=== PATIENT | female | born 1975 | race Caucasian/White ===

== ENCOUNTER 2016-09-30 19:26 | Inpatient (IN) | payer MEDICARE, BC ==
[2016-09-30] MEDS ORDERED: NITROGLYCERIN OINT 1 INCH/GM PACKET TOPICAL STA (19:54)
[2016-09-30] MEDS ORDERED: ASPIRIN 81 MG CHEW PO STA (19:54)
--- NOTE | 2016-09-30 20:00 | ED ---
General Adult HPI - General Source: patient, RN notes reviewed Mode of arrival: wheelchair Limitations: no limitations <Derrek Redd - Last Filed: 09/30/16 21:04> <Syed Wade - Last Filed: 09/30/16 22:43> - General Chief complaint: Chest Pain Stated complaint: Chest Pain Time Seen by Provider: 09/30/16 19:30 - History of Present Illness Initial comments: This is a 41-year-old female who presents to the emergency department with a past medical history significant for double lung transplant since March. Patient states she also had a blood clot somewhere in her neck she states it was on blood thinners for 2 months.. Patient had a bronchoscopy today and states about an hour after started having chest pain which was a pressure sensation in the left side of her chest and radiated down her left arm and it went up into her neck. Patient denies any fever or cough. Patient denies any chills. Patient states she is more fatigued than normal. Patient denies abdominal pain patient denies nausea vomiting diarrhea. Patient denies being lightheaded dizzy or having any near syncopal episode. (Derrek Redd) - Related Data Home Medications Medication Instructions Recorded Confirmed FLUoxetine HCL [PROzac] 30 mg PO DAILY 07/17/13 09/30/16 azaTHIOprine [Imuran] 150 mg PO DAILY 06/25/14 09/30/16 Omeprazole [PriLOSEC] 20 mg PO AC-BRKFST 07/01/15 09/30/16 Cetirizine HCl 10 mg PO DAILY 12/26/15 09/30/16 Acyclovir 400 mg PO BID 09/30/16 09/30/16 Calcium Carbonate [Calcium] 600 mg PO TID-W/MEALS 09/30/16 09/30/16 Cholecalciferol (Vitamin D3) 2,000 unit PO DAILY 09/30/16 09/30/16 [Vitamin D3] Hydrocodone/Acetaminophen [[place] 1 tab PO Q6H PRN 09/30/16 09/30/16 5-325] Magnesium Chloride [Slow Mag] 128 mg PO BID 09/30/16 09/30/16 Sulfamethox-Tmp 800-160Mg [Bactrim 1 tab PO MOWEFR 09/30/16 09/30/16 DS 800-160 mg] Tacrolimus [Prograf] 1 mg PO Q12H 09/30/16 09/30/16 Tacrolimus [Prograf] 5 mg PO Q12H 09/30/16 09/30/16 Topiramate [Topamax] 100 mg PO DAILY 09/30/16 09/30/16 predniSONE 15 mg PO DAILY 09/30/16 09/30/16 traZODone HCL 150 mg PO HS 09/30/16 09/30/16 Allergies Allergy/AdvReac Type Severity Reaction Status Date / Time gluten Allergy Unknown Verified 09/30/16 20:05 corn Allergy Unknown Uncoded 03/26/16 11:51 dairy Allergy Unknown Uncoded 03/26/16 11:51 Review of Systems ROS Other: All systems not noted in ROS Statement are negative. <Derrek Redd - Last Filed: 09/30/16 21:04> ROS Other: All systems not noted in ROS Statement are negative. <Syed Wade - Last Filed: 09/30/16 22:43> ROS Statement: Those systems with pertinent positive or pertinent negative responses have been documented in the HPI. Past Medical History Past Medical History: GERD/Reflux, Hearing Disorder / Deafness, Hypertension, Seizure Disorder Additional Past Medical History / Comment(s): bronchitis, o2 usage continuous, Raynaud's, anxiety admitted to [facility] August 2015 x 3 days for bronchitis History of Any Multi-Drug Resistant Organisms: None Reported Additional Past Surgical History / Comment(s): open lung biopsy- langerhans cell histocytosis Past Anesthesia/Blood Transfusion Reactions: No Reported Reaction Past Psychological History: No Psychological Hx Reported Smoking Status: Never smoker Past Alcohol Use History: None Reported Past Drug Use History: None Reported - Past Family History Mother Family Medical History: No Reported History <Derrek Redd - Last Filed: 09/30/16 21:04> General Exam Limitations: no limitations <Derrek Redd - Last Filed: 09/30/16 21:04> <Syed Wade - Last Filed: 09/30/16 22:43> - General Exam Comments Initial Comments: GENERAL: Patient is well-developed and well-nourished. Patient is nontoxic and well- hydrated and is in mild distress. ENT: Neck is soft and supple. No significant lymphadenopathy is noted. Oropharynx is clear. Moist mucous membranes. Neck has full range of motion without eliciting any pain. EYES: The sclera were anicteric and conjunctiva were pink and moist. Extraocular movements were intact and pupils were equal round and reactive to light. Eyelids were unremarkable. PULMONARY: Unlabored respirations. Good breath sounds bilaterally. No audible rales rhonchi or wheezing was noted. CARDIOVASCULAR: There is a regular rate and rhythm without any murmurs gallops or rubs. ABDOMEN: Soft and nontender with normal bowel sounds. No palpable organomegaly was noted. There is no palpable pulsatile mass. SKIN: Skin is clear with no lesions or rashes and otherwise unremarkable. NEUROLOGIC: Patient is alert and oriented x3. Cranial nerves II through XII are grossly intact. Motor and sensory are also intact. Normal speech, volume and content. Symmetrical smile. MUSCULOSKELETAL: Normal extremities with adequate strength and full range of motion. No lower extremity swelling or edema. No calf tenderness. LYMPHATICS: No significant lymphadenopathy is noted PSYCHIATRIC: Normal psychiatric evaluation. 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 Heart rate on arrival was likely from discomfort. CT findings are likely related to recent bronchoscopy. Patient states she only has a mild cough. Patient is receptive to be started on antibiotics. Case was discussed with practitioner Rhea, who will admit for Dr. Friedman, covering for Dr. iqbal, who admits for Dr. Bailon. Cardiology and pulmonary will be consulted. (Syed Wade) Medical Decision Making - Lab Data Result diagrams: 09/30/16 19:56 09/30/16 19:49 <Derrek Redd - Last Filed: 09/30/16 21:04> - Lab Data Result diagrams: 09/30/16 19:56 09/30/16 19:49 <Syed Wade - Last Filed: 09/30/16 22:43> - Medical Decision Making EKG shows normal sinus rhythm at 85 bpm NV interval 222 QRS 92 QT interval 386 QTC is 459. Patient's EKG shows no ST segment elevation or depression or T wave abnormalities are noted Dr. Wade be taking over the care of this patient at 9 PM (Derrek Redd) - Lab Data Lab Results 09/30/16 09/30/16 09/30/16 Range/Units 19:49 19:49 19:49 WBC (3.8-10.6) k/uL RBC (3.80-5.40) m/uL Hgb (11.4-16.0) gm/dL Hct (34.0-46.0) % MCV (80.0-100.0) fL MCH (25.0-35.0) pg MCHC (31.0-37.0) g/dL RDW (11.5-15.5) % Plt Count (150-450) k/uL Neutrophils % % Lymphocytes % % Monocytes % % Eosinophils % % Basophils % % Neutrophils # (1.3-7.7) k/uL Lymphocytes # (1.0-4.8) k/uL Monocytes # (0-1.0) k/uL Eosinophils # (0-0.7) k/uL Basophils # (0-0.2) k/uL Hypochromasia Anisocytosis PT 10.4 (9.0-12.0) sec INR 1.0 (<1.2) APTT 23.6 (22.0-30.0) sec D-Dimer 1.27 H (<0.60) mg/L FEU Sodium 140 (137-145) mmol/L Potassium 3.7 (3.5-5.1) mmol/L Chloride 110 H (98-107) mmol/L Carbon Dioxide 21 L (22-30) mmol/L Anion Gap 9 mmol/L BUN 28 H (7-17) mg/dL Creatinine 1.27 H (0.52-1.04) mg/dL Est GFR (MDRD) Af Amer 56 (>60 ml/min/1.73 sqM) Est GFR (MDRD) Non-Af 47 (>60 ml/min/1.73 sqM) Glucose 104 H (74-99) mg/dL Calcium 8.8 (8.4-10.2) mg/dL Magnesium 1.1 L (1.6-2.3) mg/dL Total Bilirubin 0.3 (0.2-1.3) mg/dL AST 22 (14-36) U/L ALT 36 (9-52) U/L Alkaline Phosphatase 45 (38-126) U/L Total Creatine Kinase 22 L (30-135) U/L CK-MB (CK-2) <0.2 (0.0-2.4) ng/mL CK-MB (CK-2) Rel Index Troponin I <0.012 (0.000-0.034) ng/mL Total Protein 6.0 L (6.3-8.2) g/dL Albumin 3.7 (3.5-5.0) g/dL 09/30/16 Range/Units 19:56 WBC 10.1 (3.8-10.6) k/uL RBC 3.43 L (3.80-5.40) m/uL Hgb 8.6 L (11.4-16.0) gm/dL Hct 28.5 L (34.0-46.0) % MCV 83.1 (80.0-100.0) fL MCH 25.1 (25.0-35.0) pg MCHC 30.2 L (31.0-37.0) g/dL RDW 18.2 H (11.5-15.5) % Plt Count 314 (150-450) k/uL Neutrophils % 88 % Lymphocytes % 7 % Monocytes % 4 % Eosinophils % 0 % Basophils % 0 % Neutrophils # 8.8 H (1.3-7.7) k/uL Lymphocytes # 0.7 L (1.0-4.8) k/uL Monocytes # 0.4 (0-1.0) k/uL Eosinophils # 0.0 (0-0.7) k/uL Basophils # 0.0 (0-0.2) k/uL Hypochromasia Marked Anisocytosis Slight PT (9.0-12.0) sec INR (<1.2) APTT (22.0-30.0) sec D-Dimer (<0.60) mg/L FEU Sodium (137-145) mmol/L Potassium (3.5-5.1) mmol/L Chloride (98-107) mmol/L Carbon Dioxide (22-30) mmol/L Anion Gap mmol/L BUN (7-17) mg/dL Creatinine (0.52-1.04) mg/dL Est GFR (MDRD) Af Amer (>60 ml/min/1.73 sqM) Est GFR (MDRD) Non-Af (>60 ml/min/1.73 sqM) Glucose (74-99) mg/dL Calcium (8.4-10.2) mg/dL Magnesium (1.6-2.3) mg/dL Total Bilirubin (0.2-1.3) mg/dL AST (14-36) U/L ALT (9-52) U/L Alkaline Phosphatase (38-126) U/L Total Creatine Kinase (30-135) U/L CK-MB (CK-2) (0.0-2.4) ng/mL CK-MB (CK-2) Rel Index Troponin I (0.000-0.034) ng/mL Total Protein (6.3-8.2) g/dL Albumin (3.5-5.0) g/dL Disposition <Derrek Redd - Last Filed: 09/30/16 21:04> Decision Time: 22:43 <Syed Wade - Last Filed: 09/30/16 22:43> Clinical Impression: Chest pain Disposition: ADMITTED IP TO THIS HOSP Referrals: Francisco Bailon DO [Primary Care Provider] - 1-2 days
[2016-09-30 20:10] LABS: Anisocytosis Slight; Basophils % (A) 0 %; CHCM 30.2; Eosinophils % (A) 0 %; HCT 28.5 % (34.0-46.0); HDW 2.92; HGB 8.6 gm/dL (11.4-16.0); Hypochromasia Marked; Luc # (Auto) 0.09; Luc % (Auto) 1; Lymphocytes # (A) 0.7 k/uL (1.0-4.8); Lymphocytes % (A) 7 %; MCH 25.1 pg (25.0-35.0); MCHC 30.2 g/dL (31.0-37.0); MCV 83.1 fL (80.0-100.0); Mean Platelet Volume 7.1; Monocytes # (A) 0.4 k/uL (0-1.0); Monocytes % (A) 4 %; Neutrophils # (A) 8.8 k/uL (1.3-7.7); Neutrophils % (A) 88 %; RBC 3.43 m/uL (3.80-5.40); RDW 18.2 % (11.5-15.5); WBC 10.1 k/uL (3.8-10.6); WBC (Perox) 10.83
[2016-09-30 20:24] LABS: Calcium 8.8 mg/dL (8.4-10.2); Potassium 3.7 mmol/L (3.5-5.1); Total Bilirubin 0.3 mg/dL (0.2-1.3)
[2016-09-30 20:29] LABS: Partial Thromboplastin Time 23.6 sec (22.0-30.0); Prothrombin Time 10.4 sec (9.0-12.0)
[2016-09-30 20:30] LABS: Magnesium 1.1 mg/dL (1.6-2.3)
--- NOTE | 2016-09-30 20:35 | XR ---
EXAMINATION TYPE: XR chest 2V DATE OF EXAM: 09/30/2016 COMPARISON: Prior chest CT 01/16/2016 HISTORY: Chest pain TECHNIQUE: Frontal and lateral views of the chest are obtained. FINDINGS: There is blunting of the right costophrenic angle and posteriorly some minimal increased d ensity is noted. There are overlying cardiac leads. Postop changes are noted status post median ga otomy. Port-A-Cath present in the left pectoral region, distal tip overlying the superior vena cava. Cardiomediastinal silhouette shows prominence of the pulmonary artery. Interstitium somewhat increas ed. Heart is normal in size. IMPRESSION: Findings are likely postoperative. Comparison with old chest x-rays may be of benefit. T here may be some basilar atelectasis or scarring. Difficult to exclude small effusion.
[2016-09-30] MEDS ORDERED: HYDROmorphone 1 MG/ML 1 ML SYRINGE IVP STA ×2 (20:38→23:51)
[2016-09-30 20:40] LABS: Creatine Kinase 22 U/L (30-135)
[2016-09-30 20:53] LABS: Creatine Kinase MB <0.2 ng/mL (0.0-2.4); Troponin I <0.012 ng/mL (0.000-0.034)
[2016-09-30] MEDS ORDERED: RX INFO: IV CONTRAST WAS GIVEN 1 EACH MISC MISCELLANE PRN (21:03)
--- NOTE | 2016-09-30 22:07 | CT ---
EXAMINATION TYPE: CT chest angio for PE DATE OF EXAM: 09/30/2016 COMPARISON: Prior CT 01/16/2016, chest x-ray same date HISTORY: Chest pain after Bronchoscopy today. Hx of double lung transplant. CT DLP: 477.6 mGycm Automated exposure control for dose reduction was used. CONTRAST: CT Chest for pulmonary embolism performed with with IV Contrast, patient injected with 70 mL of Visip aque 320. FINDINGS: LUNGS: There is some consolidation at the right lung base, minimal pleural effusion which correlates with chest x-ray findings. Airspace disease present in the left lower lobe, left upper lobe. Patient is post median sternotomy. No evident pneumothorax. Left mainstem bronchus shows a possible diverticu lum proximally at the posterior aspect, focal outpouching is lucency at this level. MEDIASTINUM: There is satisfactory enhancement of the pulmonary artery and its branches, there is no CT evidence for pulmonary embolism. There are no greater than 1 cm hilar or mediastinal lymph nodes. No pericardial effusion is seen. AORTA: No additional significant abnormality is seen. OTHER: Left-sided Port-A-Cath is present, distal tip coursing towards the region of superior vena ca va. Adrenal glands are atrophic. Liver shows low attenuation likely due to fatty infiltration. Postsu rgical changes are present compatible with patient's history of lung transplant. There is a left pulm onary artery stenosis present. This may represent an anastomotic stricture. Pulmonary arteries promin ent measuring 3.4 cm. IMPRESSION: Pulmonary artery stenosis on the left. Bilateral airspace disease is indeterminate, correlate for pne umonia. Postop changes. Adrenal atrophy may be due to chronic steroid administration. No evident pulm onary embolism. Consider pulmonary artery hypertension. Possible diverticulum at the left mainstem br onchus posteriorly
[2016-09-30] MEDS ORDERED: MAGNESIUM OXIDE 400 MG TAB PO STA (22:27)
[2016-09-30] MEDS ORDERED: NITROGLYCERIN SL TABS 0.4 MG TAB SUBLINGUAL PRN (22:44)
[2016-09-30] MEDS ORDERED: TACROLIMUS 1 MG CAP PO SCH ×3 (22:45→23:29)
[2016-09-30] MEDS ORDERED: PIPERACILLIN-TAZOBACTAM 3.375 GM in DEXTROSE/WATER 1 50ML.BAG IVPB STA (22:50)
[2016-09-30] MEDS: MAGNESIUM SULFATE-D5W PMX 1 GM in DEXTROSE/WATER 1 100ML.BAG IVPB SCH (23:34)
[2016-09-30] MEDS ORDERED: TACROLIMUS 1 MG CAP PO STA (23:57)
[2016-10-01 00:53] VITALS: BMI 34.7
[2016-10-01] MEDS: NITROGLYCERIN OINT 1 INCH/GM PACKET TOPICAL SCH ×4 (01:11→17:52)
[2016-10-01 02:42] LABS: Creatine Kinase <20 U/L (30-135)
[2016-10-01] MEDS: MAGNESIUM SULFATE-D5W PMX 1 GM in DEXTROSE/WATER 1 100ML.BAG IVPB SCH (02:48)
[2016-10-01 02:55] LABS: Creatine Kinase MB 0.2 ng/mL (0.0-2.4); Troponin I <0.012 ng/mL (0.000-0.034)
[2016-10-01 07:59] LABS: Cholesterol 210 mg/dL (<200); HDL Cholesterol 59 mg/dL (40-60); Triglycerides 107 mg/dL (<150)
[2016-10-01 08:02] LABS: Creatine Kinase <20 U/L (30-135)
[2016-10-01 08:14] LABS: Creatine Kinase MB <0.2 ng/mL (0.0-2.4); Troponin I <0.012 ng/mL (0.000-0.034)
[2016-10-01] MEDS ORDERED: SULFAMETHOX-TMP 800-160MG 1 EACH TAB PO SCH (09:00)
[2016-10-01] MEDS ORDERED: TOPIRAMATE 100 MG TAB PO SCH ×2 (09:00→21:00)
[2016-10-01] MEDS: predniSONE 5 MG TAB PO SCH (09:04)
[2016-10-01] MEDS: TACROLIMUS 1 MG CAP PO SCH ×2 (09:04→20:59)
[2016-10-01] MEDS: PANTOPRAZOLE 40 MG TABLET PO SCH (09:05)
[2016-10-01] MEDS: FLUoxetine HCL 10 MG CAP PO SCH (09:05)
[2016-10-01] MEDS: LORATADINE 10 MG TAB PO SCH (09:05)
[2016-10-01] MEDS: CHOLECALCIFEROL 1,000 UNIT TAB PO SCH (09:05)
[2016-10-01] MEDS: ASPIRIN 325 MG TAB PO SCH (09:05)
[2016-10-01] MEDS: ACYCLOVIR 200 MG CAP PO SCH ×2 (09:06→20:59)
[2016-10-01] MEDS: MAGNESIUM OXIDE 400 MG TAB PO SCH ×2 (09:06→20:59)
[2016-10-01] MEDS: PIPERACILLIN-TAZOBACTAM 3.375 GM in DEXTROSE/WATER 1 50ML.BAG IVPB SCH ×2 (09:07→17:43)
[2016-10-01] MEDS: CALCIUM CARBONATE 500 MG CHEWABLE PO SCH ×3 (09:07→17:43)
[2016-10-01] MEDS: azaTHIOprine 50 MG TAB PO SCH (09:07)
[2016-10-01] MEDS: HYDROcodone/APAP 5-325MG 1 EACH TAB PO PRN ×3 (09:08→22:47)
--- NOTE | 2016-10-01 11:41 | P.CRDCN ---
History of Present Illness Consult date: 10/01/16 History of present illness: This is a 41-year-old female with history of a lung transplant and is being followed at [facility] regularly. Apparently she had a bronchoscopy done recently as 6 months follow-up. She had some IVs and done in the left arm during the procedure. On the way home. Patient developed some pain in the left arm extending up to the left upper chest. She claimed the pain changes with movements of the arm. Not associated with the nausea vomiting or sweating. Her EKG did not reveal any acute changes. Her cardiac enzymes are negative. Apparently patient had a course in the left arm in the past. Left thumb doesn't appear to be swollen at this time. Her pains appear to be noncardiac. I'm going to get an echocardiogram to assess LV function and wall motion. If the echocardiogram is normal. No further cardiac workup is suggested at this time. Symptomatic treatment and if necessary venous duplex study could be considered. Review of Systems As per the chart Past Medical History Past Medical History: GERD/Reflux, Hearing Disorder / Deafness, Hypertension, Osteoarthritis (OA), Seizure Disorder Additional Past Medical History / Comment(s): bronchitis, o2 usage continuous, Raynaud's, anxiety admitted to [facility] August 2015 x 3 days for bronchitis, Bronch done today 09/30/16 History of Any Multi-Drug Resistant Organisms: None Reported Additional Past Surgical History / Comment(s): open lung biopsy- langerhans cell histocytosis Past Anesthesia/Blood Transfusion Reactions: No Reported Reaction Smoking Status: Former smoker - Past Family History Mother Family Medical History: No Reported History Medications and Allergies Home Medications Medication Instructions Recorded Confirmed Type FLUoxetine HCL [PROzac] 30 mg PO DAILY 07/17/13 09/30/16 History azaTHIOprine [Imuran] 150 mg PO DAILY 06/25/14 09/30/16 History Omeprazole [PriLOSEC] 20 mg PO AC-BRKFST 07/01/15 09/30/16 History Cetirizine HCl 10 mg PO DAILY 12/26/15 09/30/16 History Acyclovir 400 mg PO BID 09/30/16 09/30/16 History Calcium Carbonate [Calcium] 600 mg PO TID-W/MEALS 09/30/16 09/30/16 History Cholecalciferol (Vitamin D3) 2,000 unit PO DAILY 09/30/16 09/30/16 History [Vitamin D3] Hydrocodone/Acetaminophen [Weston 1 tab PO Q6H PRN 09/30/16 09/30/16 History 5-325] Magnesium Chloride [Slow Mag] 128 mg PO BID 09/30/16 09/30/16 History Sulfamethox-Tmp 800-160Mg [Bactrim 1 tab PO MOWEFR 09/30/16 09/30/16 History DS 800-160 mg] Tacrolimus [Prograf] 3 mg PO Q12H 09/30/16 10/01/16 History Tacrolimus [Prograf] 5 mg PO Q12H 09/30/16 09/30/16 History Topiramate [Topamax] 100 mg PO DAILY 09/30/16 09/30/16 History predniSONE 15 mg PO DAILY 09/30/16 09/30/16 History traZODone HCL 150 mg PO HS 09/30/16 09/30/16 History Allergies Allergy/AdvReac Type Severity Reaction Status Date / Time No Known Allergies Allergy Verified 10/01/16 10:00 Physical Exam Vitals: Vital Signs Temp Pulse Pulse Pulse Resp BP BP 10/01/16 09:09 10/01/16 07:43 97.7 F 79 16 133/75 10/01/16 04:00 70 16 10/01/16 03:21 97.9 F 71 16 110/68 10/01/16 00:40 98.1 F 72 16 107/71 10/01/16 00:00 78 16 09/30/16 23:43 97.8 F 81 16 105/63 09/30/16 22:05 74 18 118/61 09/30/16 21:02 79 16 118/72 09/30/16 20:32 97.8 F 82 16 128/73 09/30/16 19:56 92 09/30/16 19:29 97.2 F L 91 18 143/69 Pulse Ox 10/01/16 09:09 95 10/01/16 07:43 97 10/01/16 04:00 10/01/16 03:21 99 10/01/16 00:40 97 10/01/16 00:00 09/30/16 23:43 99 09/30/16 22:05 99 09/30/16 21:02 99 09/30/16 20:32 100 09/30/16 19:56 09/30/16 19:29 98 Intake and Output 09/30/16 10/01/16 10/01/16 22:59 06:59 14:59 Intake Total 250 Balance 250 Intake: Intake, IV Titration 200 Amount Magnesium Sulfate-D5w Pmx 200 1 gm In Dextrose/Water 1 100ml.bag @ 100 mls/hr IVPB Q1H [facility] Rx#: [id number] Oral 50 Other: Voiding Method Toilet Toilet # Voids 1 Weight 91.626 kg 91.626 kg GENERAL EXAM: Patient is alert and oriented and doesn't appear to be in any acute distress HEENT: Normocephalic. Normal reaction of pupils, equal size, normal range of extraocular motion. No erythema or exudates in the throat. NECK: No masses, no nuchal rigidity. CHEST: No chest wall deformity. LUNGS: Equal air entry with no crackles or wheeze. HEART: S1 and S2 normal with no audible mumurs or gallops. Regular rhythm, femorals equal on both sides.. ABDOMEN: soft SKIN: No rashes CENTRAL NERVOUS SYSTEM: No focal deficits. EXTREMITIES: No cyanosis, clubbing or edema. Results 09/30/16 19:56 09/30/16 19:49 Cardiac Enzymes 09/30/16 09/30/16 10/01/16 Range/Units 19:49 19:49 01:57 AST 22 (14-36) U/L CK-MB (CK-2) <0.2 0.2 (0.0-2.4) ng/mL Troponin I <0.012 <0.012 (0.000-0.034) ng/mL 10/01/16 Range/Units 07:01 AST (14-36) U/L CK-MB (CK-2) <0.2 (0.0-2.4) ng/mL Troponin I <0.012 (0.000-0.034) ng/mL Coagulation 09/30/16 Range/Units 19:49 PT 10.4 (9.0-12.0) sec APTT 23.6 (22.0-30.0) sec Lipids 10/01/16 Range/Units 07:01 Triglycerides 107 (<150) mg/dL Cholesterol 210 H (<200) mg/dL HDL Cholesterol 59 (40-60) mg/dL CBC 09/30/16 Range/Units 19:56 WBC 10.1 (3.8-10.6) k/uL RBC 3.43 L (3.80-5.40) m/uL Hgb 8.6 L (11.4-16.0) gm/dL Hct 28.5 L (34.0-46.0) % Plt Count 314 (150-450) k/uL Comprehensive Metabolic Panel 09/30/16 Range/Units 19:49 Sodium 140 (137-145) mmol/L Potassium 3.7 (3.5-5.1) mmol/L Chloride 110 H (98-107) mmol/L Carbon Dioxide 21 L (22-30) mmol/L BUN 28 H (7-17) mg/dL Creatinine 1.27 H (0.52-1.04) mg/dL Glucose 104 H (74-99) mg/dL Calcium 8.8 (8.4-10.2) mg/dL AST 22 (14-36) U/L ALT 36 (9-52) U/L Alkaline Phosphatase 45 (38-126) U/L Total Protein 6.0 L (6.3-8.2) g/dL Albumin 3.7 (3.5-5.0) g/dL Current Medications Generic Name Dose Route Start Last Admin Trade Name Mineshq PRN Reason Stop Dose Admin Hydrocodone Bitart/Acetaminophen 1 each 09/30/16 22:45 10/01/16 09:08 Weston 5-325 PO 1 each Q6H PRN Administration Pain Acyclovir 400 mg 10/01/16 09:00 10/01/16 09:06 Zovirax PO 400 mg BID PAPITO Administration Aspirin 325 mg 10/01/16 09:00 10/01/16 09:05 Aspirin PO 325 mg DAILY P[facility]O Administration Azathioprine 150 mg 10/01/16 09:00 10/01/16 09:07 Imuran PO 150 mg DAILY [facility]O Administration Calcium Carbonate/Glycine 500 mg 10/01/16 07:30 10/01/16 09:07 Tums PO 500 mg TID-W/MEALS [facility] Administration Cholecalciferol 2,000 unit 10/01/16 09:00 10/01/16 09:05 Vitamin D3 PO 2,000 unit DAILY [facility]O Administration Fluoxetine HCl 30 mg 10/01/16 09:00 10/01/16 09:05 Prozac PO 30 mg DAILY [facility] Administration Piperacillin/Tazobactam/ 50 mls @ 12.5 mls/hr 10/01/16 08:00 10/01/16 09:07 Dextrose 3.375 gm/ IV Solution IVPB 12.5 mls/hr Q8HR [facility] Administration Loratadine 10 mg 10/01/16 09:00 10/01/16 09:05 Claritin PO 10 mg DAILY [facility]O Administration Magnesium Oxide 200 mg 10/01/16 09:00 10/01/16 09:06 Mag-Ox PO 200 mg BID PAPITO Administration Miscellaneous Information 1 each 09/30/16 21:03 Rx Info: Iv Contrast Was Given MISCELLANE 10/02/16 21:03 DAILY PRN Per Protocol Nitroglycerin 1 inch 10/01/16 00:00 10/01/16 06:07 Nitro-Bid Oint TOPICAL Not Given Q6HR [facility] Nitroglycerin 0.4 mg 09/30/16 22:44 Nitrostat SUBLINGUAL Q5M PRN Chest Pain Pantoprazole Sodium 40 mg 10/01/16 07:30 10/01/16 09:05 Protonix PO 40 mg AC-BRKFST [facility] Administration Prednisone 15 mg 10/01/16 09:00 10/01/16 09:04 PO 15 mg DAILY [facility] Administration Tacrolimus 8 mg 10/01/16 09:00 10/01/16 09:04 Prograf PO 8 mg Q12H [facility] Administration Topiramate 100 mg 10/01/16 09:00 10/01/16 09:08 Topamax PO 100 mg DAILY [facility] Administration Trazodone HCl 150 mg 10/01/16 21:00 Desyrel PO HS [facility] Trimethoprim/Sulfamethoxazole 1 each 10/01/16 09:00 10/01/16 09:05 Bactrim Ds PO 1 each [id number]@0900 [facility] Administration Intake and Output 09/30/16 10/01/16 10/01/16 22:59 06:59 14:59 Intake Total 250 Balance 250 Intake: Intake, IV Titration 200 Amount Magnesium Sulfate-D5w Pmx 200 1 gm In Dextrose/Water 1 100ml.bag @ 100 mls/hr IVPB Q1H [facility] Rx#: [id number] Oral 50 Other: Voiding Method Toilet Toilet # Voids 1 Weight 91.626 kg 91.626 kg 09/30/16 19:56 09/30/16 19:49 EKG Interpretations (text) Sinus rhythm Assessment and Plan (1) Left arm pain Status: Acute (2) Status post lung transplantation Status: Acute (3) Chest pain Status: Acute Plan: Her left arm pain appears to be noncardiac and mostly muscular skeletal. Symptomatic treatment and if necessary Venous duplex study to be considered. Cardiac enzyme studies are normal. EKGs normal. Somebody get an echo Cardec gram to assess LV function and rule out any segmental wall motion defects. If echo studies normal, No further cardiac workup is necessary at this time.
--- NOTE | 2016-10-01 14:35 | ECHOF ---
Referral Reason:Chest pain and cardiomyopathy MEASUREMENTS -------- HEIGHT: 162.6 cm WEIGHT: 91.6 kg BP: 133/75 RVIDd: 2.7 cm (< 3.3) IVSd: 1.3 cm (0.6 - 1.1) LVIDd: 3.8 cm (3.9 - 5.3) LVPWd: 1.2 cm (0.6 - 1.1) IVSs: 1.7 cm LVIDs: 3.0 cm LVPWs: 1.3 cm LA Diam: 3.7 cm (2.7 - 3.8) LAESV Index (A-L): 22.99 ml/m Ao Diam: 3.0 cm (2.0 - 3.7) AV Cusp: 1.9 cm (1.5 - 2.6) LA Diam: 4.2 cm (2.7 - 3.8) MV EXCURSION: 16.305 mm (> 18.000) MV EF SLOPE: 64 mm/s (70 - 150) EPSS: 0.2 cm MV E David: 0.98 m/s MV DecT: 239 ms MV A David: 0.69 m/s MV E/A Ratio: 1.41 RAP: 5.00 mmHg RVSP: 19.69 mmHg FINDINGS -------- Sinus rhythm. This was a technically adequate study. There is mild concentric left ventricular hypertrophy. Overall left ventricular systolic function is normal with, an EF between 55 - 60 %. The right ventricle is normal in size. Normal LA size by volume 22+/-6 ml/m2. The right atrial size is normal. The aortic valve is trileaflet, and appears structurally normal. No aortic stenosis or regurgitation. Mild mitral regurgitation is present. Mild tricuspid regurgitation present. There is no evidence of pulmonary hypertension. The right ventricular systolic pressure, as measured by Doppler, is 19.69mmHg. Trace/mild (physiologic) pulmonic regurgitation. There is no pericardial effusion. CONCLUSIONS -------- 1. There is mild concentric left ventricular hypertrophy. 2. Overall left ventricular systolic function is normal with, an EF between 55 - 60 %. 3. Mild mitral regurgitation is present. 4. Mild tricuspid regurgitation present. 5. There is no evidence of pulmonary hypertension. 6. The right ventricular systolic pressure, as measured by Doppler, is 19.69mmHg. 7. Trace/mild (physiologic) pulmonic regurgitation. GAS SYSTEMS WORKER: Sue Escalante RDCS
--- NOTE | 2016-10-01 15:49 | P.CNPUL ---
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 The patient is under the care of Dr. Fercho Huynh. The patient had a surveillance bronchoscopy yesterday at [facility] which is typically being done every 3 months. She did not have any evidence of an acute rejection earlier. She did not have any pulmonary respiratory complications such as infections with MRSA, pseudomonas or Aspergillus. She was maintained on a combination of Prograf, Imuran and 15 mg of prednisone as part of her rejection therapy. She is also on acyclovir and Bactrim. She underwent her bronchoscopy yesterday and she came back to [facility] where she started having some cold chills and subsequently she started having discomfort along her left chest area. She had some limited pleurisy. No documented fever. She remained hemodynamically stable. Her white cell count is at 10.1. Baseline creatinine was at 1.27. A CT angios the chest was done yesterday and it showed consolidation of the lung bases more so on the left lower lobe and some limited changes in the left upper lobe. No pneumothorax. There is satisfactory hospital the pulmonary artery branches and there was no evidence of any pulmonary embolism. No other major abnormalities was noted. The patient was started on IV Zosyn and the patient was admitted to the hospital. Case management is working on transferring this patient to [facility]. She is doing well this morning. She is afebrile. She is having no nausea or vomiting or emesis. She was seen by cardiology and echocardiogram was done that showed no major abnormalities. No skin rashes. Review of Systems All systems: negative Constitutional: Denies chills, Denies fever Eyes: denies blurred vision, denies bulging eye, denies decreased vision Ears, nose, mouth and throat: Denies headache, Denies sore throat Cardiovascular: Reports dyspnea on exertion Respiratory: Denies cough Gastrointestinal: Denies abdominal pain, Denies diarrhea, Denies nausea, Denies vomiting Genitourinary: Denies dysuria, Denies hematuria Musculoskeletal: Denies myalgias Musculoskeletal: absent: ankle pain, ankle stiffness, ankle swelling Integumentary: Denies pruritus, Denies rash Neurological: Denies numbness, Denies weakness Psychiatric: Denies anxiety, Denies depression Endocrine: Denies fatigue, Denies weight change Past Medical History Past Medical History: GERD/Reflux, Hearing Disorder / Deafness, Hypertension, Osteoarthritis (OA), Respiratory Disorder Additional Past Medical History / Comment(s): Histiocytosis X, bilateral lung transplantation, acid reflux, Raynaud's disease, generalized anxiety disorder History of Any Multi-Drug Resistant Organisms: None Reported Additional Past Surgical History / Comment(s): open lung biopsy- langerhans cell histocytosis Past Anesthesia/Blood Transfusion Reactions: No Reported Reaction Smoking Status: Former smoker - Past Family History Mother Family Medical History: No Reported History Medications and Allergies Home Medications Medication Instructions Recorded Confirmed Type FLUoxetine HCL [PROzac] 30 mg PO DAILY 07/17/13 09/30/16 History azaTHIOprine [Imuran] 150 mg PO DAILY 06/25/14 09/30/16 History Omeprazole [PriLOSEC] 20 mg PO AC-BRKFST 07/01/15 09/30/16 History Cetirizine HCl 10 mg PO DAILY 12/26/15 09/30/16 History Acyclovir 400 mg PO BID 09/30/16 09/30/16 History Calcium Carbonate [Calcium] 600 mg PO TID-W/MEALS 09/30/16 09/30/16 History Cholecalciferol (Vitamin D3) 2,000 unit PO DAILY 09/30/16 09/30/16 History [Vitamin D3] Hydrocodone/Acetaminophen [[place] 1 tab PO Q6H PRN 09/30/16 09/30/16 History 5-325] Magnesium Chloride [Slow-Mag] 128 mg PO BID 09/30/16 09/30/16 History Sulfamethox-Tmp 800-160Mg [Bactrim 1 tab PO MOWEFR 09/30/16 09/30/16 History DS 800-160 mg] Tacrolimus [Prograf] 3 mg PO Q12H 09/30/16 10/01/16 History Tacrolimus [Prograf] 5 mg PO Q12H 09/30/16 09/30/16 History Topiramate [Topamax] 100 mg PO DAILY 09/30/16 09/30/16 History predniSONE 15 mg PO DAILY 09/30/16 09/30/16 History traZODone HCL 150 mg PO HS 09/30/16 09/30/16 History Allergies Allergy/AdvReac Type Severity Reaction Status Date / Time No Known Allergies Allergy Verified 10/01/16 10:00 Physical Exam Vitals: Vital Signs Temp Pulse Pulse Pulse Resp BP BP 10/01/16 12:00 98.2 F 72 16 113/65 10/01/16 09:09 10/01/16 07:43 97.7 F 79 16 133/75 10/01/16 04:00 70 16 10/01/16 03:21 97.9 F 71 16 110/68 10/01/16 00:40 98.1 F 72 16 107/71 10/01/16 00:00 78 16 09/30/16 23:43 97.8 F 81 16 105/63 09/30/16 22:05 74 18 118/61 09/30/16 21:02 79 16 118/72 09/30/16 20:32 97.8 F 82 16 128/73 09/30/16 19:56 92 09/30/16 19:29 97.2 F L 91 18 143/69 Pulse Ox 10/01/16 12:00 94 L 10/01/16 09:09 95 10/01/16 07:43 97 10/01/16 04:00 10/01/16 03:21 99 10/01/16 00:40 97 10/01/16 00:00 09/30/16 23:43 99 09/30/16 22:05 99 09/30/16 21:02 99 09/30/16 20:32 100 09/30/16 19:56 09/30/16 19:29 98 Intake and Output 10/01/16 10/01/16 10/01/16 06:59 14:59 22:59 Intake Total 250 236 Balance 250 236 Intake: Intake, IV Titration 200 Amount Magnesium Sulfate-D5w Pmx 200 1 gm In Dextrose/Water 1 100ml.bag @ 100 mls/hr IVPB Q1H [facility] Rx#: [id number] Oral 50 236 Other: Voiding Method Toilet Toilet # Voids 1 Weight 91.626 kg Head exam was generally normal. There was no scleral icterus or corneal arcus. Mucous membranes were moist. Some limited cushingoid features.Neck was supple and without jugular venous distension, thyromegaly, or carotid bruits. Carotids were easily palpable bilaterally. There was no adenopathy. Lung sounds are diminished bilaterally especially in the left lung base with there is some limited crackles.Cardiac exam revealed the PMI to be normally situated and sized. The rhythm was regular and no extrasystoles were noted during several minutes of auscultation. The first and second heart sounds were normal and physiologic splitting of the second heart sound was noted. There were no murmurs , rubs, clicks, or gallops.Abdominal exam revealed normal bowel sounds. The abdomen was soft, non-tender, and without masses, organomegaly, or appreciable enlargement of the abdominal aorta.Examination of the extremities revealed easily palpable radial, femoral and pedal pulses. There was no cyanosis, clubbing or edema. Results - Laboratory Findings CBC and BMP: 09/30/16 19:56 09/30/16 19:49 PT/INR, D-dimer PT 10.4 sec (9.0-12.0) 09/30/16 19:49 INR 1.0 (<1.2) 09/30/16 19:49 D-Dimer 1.27 mg/L FEU (<0.60) H 09/30/16 19:49 Abnormal lab findings: Abnormal Labs 09/30/16 09/30/16 09/30/16 19:49 19:49 19:49 RBC Hgb Hct MCHC RDW Neutrophils # Lymphocytes # D-Dimer 1.27 H Chloride 110 H Carbon Dioxide 21 L BUN 28 H Creatinine 1.27 H Glucose 104 H Magnesium 1.1 L Total Creatine Kinase 22 L Total Protein 6.0 L Cholesterol LDL Cholesterol, Calc 09/30/16 10/01/16 10/01/16 19:56 01:57 07:01 RBC 3.43 L Hgb 8.6 L Hct 28.5 L MCHC 30.2 L RDW 18.2 H Neutrophils # 8.8 H Lymphocytes # 0.7 L D-Dimer Chloride Carbon Dioxide BUN Creatinine Glucose Magnesium Total Creatine Kinase <20 L <20 L Total Protein Cholesterol LDL Cholesterol, Calc 10/01/16 07:01 RBC Hgb Hct MCHC RDW Neutrophils # Lymphocytes # D-Dimer Chloride Carbon Dioxide BUN Creatinine Glucose Magnesium Total Creatine Kinase Total Protein Cholesterol 210 H LDL Cholesterol, Calc 130 H - Diagnostic Findings CT scan - chest: image reviewed Assessment and Plan Plan: Assessment 1 acute bilateral pneumonia suspected, more so in the left lung base and to lesser extent in the right lower lobe. 2 bilateral lung transplantation 3 chronic suppression with a combination of Prograft, Imuran and prednisone. 4 hypertension 5 osteoarthritis 6 acid reflux 7 normal echocardiogram with a normal LV function. 8. Acute kidney injury, creatinine is at 1.27, watch for any contrast nephropathy. Continue with IV fluids. 9 chronic anemia, normocytic Plan Cover this patient with accommodation of Zosyn and vancomycin. Sputum Gram stain and culture. Blood cultures. Bronchoscopy was done yesterday at [facility]. The patient will be transferred to [facility]. Follow-up on the results of the bronchoscopy including the biopsy results and the bronchioloalveolar lavage to rule out any microbial growth. Hemodynamically stable. Continue same immunosuppressive agents for now. Patient is on her way out this afternoon. We'll send all records including the images a CAT scan of the chest that was done yesterday.
[2016-10-01] MEDS ORDERED: SODIUM CHLORIDE 0.9% 1,000 ML IV STA (17:06)
--- NOTE | 2016-10-01 17:06 | P.HPIM ---
History of Present Illness H&P Date: 10/01/16 This is a 41-year-old female who underwent lung presentation due to Langerhans' cell histiocytosis in March 2016. Patient was seen by her transplant special inspector yesterday underwent a bronchoscopy. Patient was driving back from [place] was noted to have left-sided shoulder pain. Patient states that she was also working out with her group dynamics instructor prior to undergoing the the procedure yesterday Patient was seen in the emergency room due to some suspicion for a pulmonary embolism the emergency room physician has done a CT angiogram. Which was negative Patient does have CK D stage III in the recent times with a creatinine around 1.19 at baseline Patient today was seen. EKG did not reveal any ST-T wave changes Patient did receive about 70 mL of contrast Today patient received a phone call from her transplant special inspector who requested the patient be transferred to [facility] as he was concerned about the contrast-induced nephropathy Patient at this time states that her pain on the left shoulder is worse with any range of motion including abduction and raising her arm above her shoulder No fevers, chills, nausea, vomiting, diarrhea is reported Review of Systems All systems: negative (Noted in HPI) Past Medical History Past Medical History: GERD/Reflux, Hearing Disorder / Deafness, Hypertension, Osteoarthritis (OA), Respiratory Disorder Additional Past Medical History / Comment(s): Histiocytosis X, bilateral lung transplantation, acid reflux, Raynaud's disease, generalized anxiety disorder History of Any Multi-Drug Resistant Organisms: None Reported Additional Past Surgical History / Comment(s): open lung biopsy- langerhans cell histocytosis Past Anesthesia/Blood Transfusion Reactions: No Reported Reaction Smoking Status: Former smoker - Past Family History Mother Family Medical History: No Reported History Medications and Allergies Home Medications Medication Instructions Recorded Confirmed Type FLUoxetine HCL [PROzac] 30 mg PO DAILY 07/17/13 09/30/16 History azaTHIOprine [Imuran] 150 mg PO DAILY 06/25/14 09/30/16 History Omeprazole [PriLOSEC] 20 mg PO AC-BRKFST 07/01/15 09/30/16 History Cetirizine HCl 10 mg PO DAILY 12/26/15 09/30/16 History Acyclovir 400 mg PO BID 09/30/16 09/30/16 History Calcium Carbonate [Calcium] 600 mg PO TID-W/MEALS 09/30/16 09/30/16 History Cholecalciferol (Vitamin D3) 2,000 unit PO DAILY 09/30/16 09/30/16 History [Vitamin D3] Hydrocodone/Acetaminophen [[place] 1 tab PO Q6H PRN 09/30/16 09/30/16 History 5-325] Magnesium Chloride [Slow-Mag] 128 mg PO BID 09/30/16 09/30/16 History Sulfamethox-Tmp 800-160Mg [Bactrim 1 tab PO MOWEFR 09/30/16 09/30/16 History DS 800-160 mg] Tacrolimus [Prograf] 3 mg PO Q12H 09/30/16 10/01/16 History Tacrolimus [Prograf] 5 mg PO Q12H 09/30/16 09/30/16 History Topiramate [Topamax] 100 mg PO DAILY 09/30/16 09/30/16 History predniSONE 15 mg PO DAILY 09/30/16 09/30/16 History traZODone HCL 150 mg PO HS 09/30/16 09/30/16 History Allergies Allergy/AdvReac Type Severity Reaction Status Date / Time No Known Allergies Allergy Verified 10/01/16 10:00 Physical Exam Vitals: Vital Signs Temp Pulse Pulse Pulse Resp BP BP 10/01/16 12:00 98.2 F 72 16 113/65 10/01/16 09:09 10/01/16 07:43 97.7 F 79 16 133/75 10/01/16 04:00 70 16 10/01/16 03:21 97.9 F 71 16 110/68 10/01/16 00:40 98.1 F 72 16 107/71 10/01/16 00:00 78 16 09/30/16 23:43 97.8 F 81 16 105/63 09/30/16 22:05 74 18 118/61 09/30/16 21:02 79 16 118/72 09/30/16 20:32 97.8 F 82 16 128/73 09/30/16 19:56 92 09/30/16 19:29 97.2 F L 91 18 143/69 Pulse Ox 10/01/16 12:00 94 L 10/01/16 09:09 95 10/01/16 07:43 97 10/01/16 04:00 10/01/16 03:21 99 10/01/16 00:40 97 10/01/16 00:00 09/30/16 23:43 99 09/30/16 22:05 99 09/30/16 21:02 99 09/30/16 20:32 100 09/30/16 19:56 09/30/16 19:29 98 Intake and Output 10/01/16 10/01/16 10/01/16 06:59 14:59 22:59 Intake Total 250 236 Balance 250 236 Intake: Intake, IV Titration 200 Amount Magnesium Sulfate-D5w Pmx 200 1 gm In Dextrose/Water 1 100ml.bag @ 100 mls/hr IVPB Q1H [facility] Rx#: [id number] Oral 50 236 Other: Voiding Method Toilet Toilet # Voids 1 Weight 91.626 kg Physical exam Gen. appearance oriented 3 in no distress Neck is supple no JVD Lungs good air entry clear to auscultation no rhonchi or wheezing Heart S1-S2 heard regular rate and rhythm no murmurs appreciated Abdomen is soft nontender no organomegaly bowel sounds are intact Neurologically cranial nerves II-12 grossly intact no focal motor or sensory deficits noted Musculoskeletal tenderness around the acromioclavicular joint. Reproducibility of pain with the adduction Consistent with supraspinatus tendinitis Skin no abnormalities appreciated Results CBC & Chem 7: 09/30/16 19:56 09/30/16 19:49 Labs: Abnormal Lab Results - Last 24 Hours (Table) 09/30/16 09/30/16 09/30/16 Range/Units 19:49 19:49 19:49 RBC (3.80-5.40) m/uL Hgb (11.4-16.0) gm/dL Hct (34.0-46.0) % MCHC (31.0-37.0) g/dL RDW (11.5-15.5) % Neutrophils # (1.3-7.7) k/uL Lymphocytes # (1.0-4.8) k/uL D-Dimer 1.27 H (<0.60) mg/L FEU Chloride 110 H (98-107) mmol/L Carbon Dioxide 21 L (22-30) mmol/L BUN 28 H (7-17) mg/dL Creatinine 1.27 H (0.52-1.04) mg/dL Glucose 104 H (74-99) mg/dL Magnesium 1.1 L (1.6-2.3) mg/dL Total Creatine Kinase 22 L (30-135) U/L Total Protein 6.0 L (6.3-8.2) g/dL Cholesterol (<200) mg/dL LDL Cholesterol, Calc (0-99) mg/dL 09/30/16 10/01/16 10/01/16 Range/Units 19:56 01:57 07:01 RBC 3.43 L (3.80-5.40) m/uL Hgb 8.6 L (11.4-16.0) gm/dL Hct 28.5 L (34.0-46.0) % MCHC 30.2 L (31.0-37.0) g/dL RDW 18.2 H (11.5-15.5) % Neutrophils # 8.8 H (1.3-7.7) k/uL Lymphocytes # 0.7 L (1.0-4.8) k/uL D-Dimer (<0.60) mg/L FEU Chloride (98-107) mmol/L Carbon Dioxide (22-30) mmol/L BUN (7-17) mg/dL Creatinine (0.52-1.04) mg/dL Glucose (74-99) mg/dL Magnesium (1.6-2.3) mg/dL Total Creatine Kinase <20 L <20 L (30-135) U/L Total Protein (6.3-8.2) g/dL Cholesterol (<200) mg/dL LDL Cholesterol, Calc (0-99) mg/dL 10/01/16 Range/Units 07:01 RBC (3.80-5.40) m/uL Hgb (11.4-16.0) gm/dL Hct (34.0-46.0) % MCHC (31.0-37.0) g/dL RDW (11.5-15.5) % Neutrophils # (1.3-7.7) k/uL Lymphocytes # (1.0-4.8) k/uL D-Dimer (<0.60) mg/L FEU Chloride (98-107) mmol/L Carbon Dioxide (22-30) mmol/L BUN (7-17) mg/dL Creatinine (0.52-1.04) mg/dL Glucose (74-99) mg/dL Magnesium (1.6-2.3) mg/dL Total Creatine Kinase (30-135) U/L Total Protein (6.3-8.2) g/dL Cholesterol 210 H (<200) mg/dL LDL Cholesterol, Calc 130 H (0-99) mg/dL Thrombosis Risk Factor Assmnt - Choose All That Apply Each Factor Represents 1 point: Obesity (BMI >25) Thrombosis Risk Factor Assessment Total Risk Factor Score: 1 Thrombosis Risk Factor Assessment Level: Low Risk Assessment and Plan Plan: #1 atypical chest pain this is likely musculoskeletal in nature #2 suspected pneumonia bilateral #3 chronic anemia this is likely due to anemia of chronic disease #4 CK D stage III with creatinine of 1.19 with an acute worsening of creatinine #5 GERD #6 essential hypertension #7 Langerhans' cell histiocytosis status post lung transportation Plan We'll start the patient on 75 mL of normal saline Continue monitoring the renal function Once patient is except her [facility] can be transferred Empiric antibody therapy was started by the special inspector
[2016-10-01] MEDS ORDERED: traZODone HCL 50 MG TAB PO SCH (21:00)
[2016-10-02] MEDS: PIPERACILLIN-TAZOBACTAM 3.375 GM in DEXTROSE/WATER 1 50ML.BAG IVPB SCH ×2 (01:00→08:21)
[2016-10-02] MEDS: NITROGLYCERIN OINT 1 INCH/GM PACKET TOPICAL SCH ×3 (05:18→14:23)
[2016-10-02] MEDS: HYDROcodone/APAP 5-325MG 1 EACH TAB PO PRN ×2 (07:29→14:25)
[2016-10-02 07:41] LABS: Calcium 8.5 mg/dL (8.4-10.2); Potassium 4.5 mmol/L (3.5-5.1); Total Bilirubin 0.2 mg/dL (0.2-1.3); Total Protein 5.5 g/dL (6.3-8.2)
[2016-10-02] MEDS: predniSONE 5 MG TAB PO SCH (08:08)
[2016-10-02] MEDS: ACYCLOVIR 200 MG CAP PO SCH (08:10)
[2016-10-02] MEDS: MAGNESIUM OXIDE 400 MG TAB PO SCH (08:11)
[2016-10-02] MEDS: CALCIUM CARBONATE 500 MG CHEWABLE PO SCH ×2 (08:13→14:25)
[2016-10-02] MEDS: azaTHIOprine 50 MG TAB PO SCH (08:14)
[2016-10-02] MEDS: PANTOPRAZOLE 40 MG TABLET PO SCH (08:15)
[2016-10-02] MEDS: ASPIRIN 325 MG TAB PO SCH (08:15)
[2016-10-02] MEDS: CHOLECALCIFEROL 1,000 UNIT TAB PO SCH (08:16)
[2016-10-02] MEDS: LORATADINE 10 MG TAB PO SCH (08:17)
[2016-10-02] MEDS: FLUoxetine HCL 10 MG CAP PO SCH (08:17)
[2016-10-02] MEDS: TACROLIMUS 1 MG CAP PO SCH (08:20)
--- NOTE | 2016-10-02 14:14 | P.PN ---
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 The patient is under the care of Dr. Fercho Huynh. The patient had a surveillance bronchoscopy yesterday at [facility] which is typically being done every 3 months. She did not have any evidence of an acute rejection earlier. She did not have any pulmonary respiratory complications such as infections with MRSA, pseudomonas or Aspergillus. She was maintained on a combination of Prograf, Imuran and 15 mg of prednisone as part of her rejection therapy. She is also on acyclovir and Bactrim. She underwent her bronchoscopy yesterday and she came back to [facility] where she started having some cold chills and subsequently she started having discomfort along her left chest area. She had some limited pleurisy. No documented fever. She remained hemodynamically stable. Her white cell count is at 10.1. Baseline creatinine was at 1.27. A CT angios the chest was done yesterday and it showed consolidation of the lung bases more so on the left lower lobe and some limited changes in the left upper lobe. No pneumothorax. There is satisfactory hospital the pulmonary artery branches and there was no evidence of any pulmonary embolism. No other major abnormalities was noted. The patient was started on IV Zosyn and the patient was admitted to the hospital. Case management is working on transferring this patient to [facility]. She is doing well this morning. She is afebrile. She is having no nausea or vomiting or emesis. She was seen by cardiology and echocardiogram was done that showed no major abnormalities. No skin rashes. The patient is seen again today 10/02/2016 in follow-up on the regular medical floor. She is awake and alert in no acute distress. She's been up ambulating in the hallway. She still has a loose nonproductive cough. No chills or night sweats. He is maintaining good O2 saturations up to 100% on room air. She is afebrile. Hemodynamically stable. He remains on IV Zosyn. She is continued on her Bactrim on Tuesday. Objective - Vital Signs Vital signs: Vital Signs Temp 98.1 F 10/02/16 12:00 Pulse 85 10/02/16 12:00 Resp 14 10/02/16 12:00 BP 107/61 10/02/16 12:00 Pulse Ox 100 10/02/16 12:00 Intake & Output 10/01/16 10/02/16 10/02/16 18:59 06:59 18:59 Intake Total 236 Output Total 1 Balance 236 -1 Weight 91.626 kg Intake: Oral 236 Output: Urine 1 Other: Voiding Method Toilet Toilet # Voids 1 - Exam Head exam was generally normal. There was no scleral icterus or corneal arcus. Mucous membranes were moist. Some limited cushingoid features.Neck was supple and without jugular venous distension, thyromegaly, or carotid bruits. Carotids were easily palpable bilaterally. There was no adenopathy. Lung sounds are diminished bilaterally especially in the left lung base with there is some limited crackles.Cardiac exam revealed the PMI to be normally situated and sized. The rhythm was regular and no extrasystoles were noted during several minutes of auscultation. The first and second heart sounds were normal and physiologic splitting of the second heart sound was noted. There were no murmurs , rubs, clicks, or gallops.Abdominal exam revealed normal bowel sounds. The abdomen was soft, non-tender, and without masses, organomegaly, or appreciable enlargement of the abdominal aorta.Examination of the extremities revealed easily palpable radial, femoral and pedal pulses. There was no cyanosis, clubbing or edema. - Labs CBC & Chem 7: 09/30/16 19:56 10/02/16 06:50 Labs: Abnormal Lab Results - Last 24 Hours (Table) 10/02/16 Range/Units 06:50 Chloride 113 H (98-107) mmol/L Carbon Dioxide 21 L (22-30) mmol/L BUN 18 H (7-17) mg/dL Creatinine 1.29 H (0.52-1.04) mg/dL Total Protein 5.5 L (6.3-8.2) g/dL Albumin 3.2 L (3.5-5.0) g/dL Microbiology - Last 24 Hours (Table) 09/30/16 19:49 Blood Culture - Preliminary Blood No Growth after 24 hours Assessment and Plan Plan: Assessment 1 acute bilateral pneumonia suspected, more so in the left lung base and to lesser extent in the right lower lobe. Currently on Zosyn. 2 bilateral lung transplantation 3 chronic suppression with a combination of Prograft, Imuran and prednisone. 4 hypertension 5 osteoarthritis 6 acid reflux 7 normal echocardiogram with a normal LV function. 8. Acute kidney injury, creatinine is at 1.29, watch for any contrast nephropathy. Continue with IV fluids. 9 chronic anemia, normocytic Plan The patient is seen and evaluated by Dr. Worthington. We'll continue with her current medications. The plan is for transfer to the [facility] to be near her lung transplant team as she had had a bronchoscopy done there 2 days ago. If not transferred today we'll continue to follow.
[2016-10-02 16:10] VITALS: BP 104/71; PULSE 68; RESP 16; TEMP 98.6
--- NOTE | 2016-10-02 16:13 | P.DS ---
Providers Date of admission: 10/02/16 08:08 Expected date of discharge: 10/02/16 (Transfer to [facility]) Attending physician: Benson Infante Consults: 09/30/16 22:44 Consult Physician Routine Consulting Provider: Higinio More Consult Reason/Comments: cp, recent lung transplant Do you want consulting provider notified?: Yes Consult Physician Urgent Consulting Provider: Madan Stovall Consult Reason/Comments: cp Do you want consulting provider notified?: Yes Primary care physician: Francisco [facility] Course: FINAL DIAGNOSES: Acute bilateral pneumonia suspected, more so in the left lung base and to lesser extent in the right lower lobe. Currently on Zosyn. bilateral lung transplantation chronic suppression with a combination of Prograft, Imuran and prednisone. hypertension osteoarthritis acid reflux normal echocardiogram with a normal LV function. Acute kidney injury, creatinine is at 1.29, watch for any contrast nephropathy. Continue with IV fluids. 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 Patient's cough is loose and non- productive Patient is being transferred to [facility] to be close to her transplant physician for continued care. PHYSICAL EXAM: CARDIOVASCULAR: First and second sounds noted no edema. RESPIRATORY: Diminished breath sounds bilaterally especially in the left lung base, some limited crackles respiratory effort normal GI: Positive bowel sounds, 4 liver and spleen nonpalpable MUSKULOSKELETAL: Moves all 4 extremities ambulatory in the halls Patient was seen and examined by nurse practitioner Екатерина Hughes in all elements of the case discussed with attending Dr. Infante DISPOSITION: Transfer to [facility] Pertinent Studies: Echocardiogram, EF between 55 and 60% Patient Condition at Discharge: Serious Plan - Discharge Summary New Discharge Prescriptions: Continue FLUoxetine HCL [PROzac] 30 mg PO DAILY azaTHIOprine [Imuran] 150 mg PO DAILY Omeprazole [PriLOSEC] 20 mg PO AC-BRKFST Cetirizine HCl 10 mg PO DAILY Tacrolimus [Prograf] 3 mg PO Q12H Sulfamethox-Tmp 800-160Mg [Bactrim DS 800-160 mg] 1 tab PO MOWEFR Magnesium Chloride [Slow-Mag] 128 mg PO BID Cholecalciferol (Vitamin D3) [Vitamin D3] 2,000 unit PO DAILY Calcium Carbonate [Calcium] 600 mg PO TID-W/MEALS Acyclovir 400 mg PO BID Topiramate [Topamax] 100 mg PO DAILY Hydrocodone/Acetaminophen [[place] 5-325] 1 tab PO Q6H PRN PRN Reason: Pain traZODone HCL 150 mg PO HS predniSONE 15 mg PO DAILY Tacrolimus [Prograf] 5 mg PO Q12H Discharge Medication List FLUoxetine HCL [PROzac] 30 mg PO DAILY 07/17/13 [History] azaTHIOprine [Imuran] 150 mg PO DAILY 06/25/14 [History] Omeprazole [PriLOSEC] 20 mg PO AC-BRKFST 07/01/15 [History] Cetirizine HCl 10 mg PO DAILY 12/26/15 [History] Acyclovir 400 mg PO BID 09/30/16 [History] Calcium Carbonate [Calcium] 600 mg PO TID-W/MEALS 09/30/16 [History] Cholecalciferol (Vitamin D3) [Vitamin D3] 2,000 unit PO DAILY 09/30/16 [History] Hydrocodone/Acetaminophen [[place] 5-325] 1 tab PO Q6H PRN 09/30/16 [History] Magnesium Chloride [Slow-Mag] 128 mg PO BID 09/30/16 [History] Sulfamethox-Tmp 800-160Mg [Bactrim DS 800-160 mg] 1 tab PO MOWEFR 09/30/16 [ History] Tacrolimus [Prograf] 3 mg PO Q12H 09/30/16 [History] Tacrolimus [Prograf] 5 mg PO Q12H 09/30/16 [History] Topiramate [Topamax] 100 mg PO DAILY 09/30/16 [History] predniSONE 15 mg PO DAILY 09/30/16 [History] traZODone HCL 150 mg PO HS 09/30/16 [History] Follow up Appointment(s)/Referral(s): Francisco Bailon DO [Primary Care Provider] - 1-2 days
--- NOTE | 2016-10-06 13:26 | DS ---
ATTENDING NOTE: This patient seen and examined by me on 10/02/2016. Discussed the care with my nurse practitioner, Ms. Monsonsharrimaritza. FINAL DIAGNOSIS: 1. Acute bilateral pneumonia mostly in the left lung base. 2. Bilateral lung transplantation. 3. Chronically immunosuppressed. 4. Essential hypertension. 5. Primary osteoarthritis of bilateral joints. 6. Chronic gastroesophageal reflux disease. 7. Chronic anemia, normocytic. HOSPITAL COURSE: This patient with history of pulmonary ( ) granuloma, status post bilateral lung transplantation, had bronchoscopy on 10/01/16 and then started bringing up some blood. Weak, tired and run down. Hooks to have pneumonia. Admitted here. Seen by Dr. Peguero from pulmonary. The patient is being transferred back to the [facility]. On examination, lungs decreased breath sounds. Prolonged expiration. PSYCH: AO times three. Care was discussed with the patient. PRITI
== END 2016-10-02 16:30 | disposition short-term general hospital (02) | DRG 194 ==
LOC: EC 19:26 → 3OBS 22:44 → OBSVTOIN 10-02 08:08
PROVIDERS: ADMIT Hospitalist; ATTEND Hospitalist
DX: J18.9 Pneumonia, unspecified organism (principal); Z94.2 Lung transplant status; N17.9 Acute kidney failure, unspecified; I10 Essential (primary) hypertension; M19.91 Primary osteoarthritis, unspecified site; K21.9 Gastro-esophageal reflux disease without esophagitis; H91.90 Unspecified hearing loss, unspecified ear; F41.1 Generalized anxiety disorder; I73.00 Raynaud's syndrome without gangrene; G40.909 Epilepsy, unspecified, not intractable, without status epilepticus; F41.9 Anxiety disorder, unspecified; D63.8 Anemia in other chronic diseases classified elsewhere; R09.1 Pleurisy; Z79.52 Long term (current) use of systemic steroids; Z79.899 Other long term (current) drug therapy; Z87.891 Personal history of nicotine dependence
CPT/HCPCS: 36415; 71020; 71275; 80053; 80061; 82550; 82553; 83735; 84484; 85025; 85379; 85610; 85730; 87040; 93005; 93306; 94760; 96365; 96368; 96375; 96376; 99285

== ENCOUNTER → 2016-12-21 | Outpatient (CLI) | payer MEDICARE, BC ==
[2016-12-21 11:32] VITALS: BMI 36.2
== END | disposition home or self-care (01) ==
LOC: MNTWWP 11:09
PROVIDERS: ATTEND Family Medicine
DX: Z09 Encounter for follow-up examination after completed treatment for conditions other than malignant neoplasm (principal)
CPT/HCPCS: 97802

== ENCOUNTER → 2017-03-08 | Outpatient (CLI) | payer MEDICARE, BC ==
--- NOTE | 2017-03-08 13:32 | XR ---
EXAMINATION TYPE: XR chest 2V DATE OF EXAM: 03/08/2017 COMPARISON: 09/23/2016 HISTORY: Chest pain TECHNIQUE: Frontal and lateral views of the chest are obtained. FINDINGS: There is no focal air space opacity. No evidence for pneumothorax. No pleural effusion. The cardiac silhouette size is within normal limits. Chronic stranding right lower lobe. Chronic blun ting right costophrenic angle. The osseous structures are grossly intact. IMPRESSION: 1. No acute cardiopulmonary process.
== END | disposition home or self-care (01) ==
LOC: RADXRMAIN 13:05
PROVIDERS: ATTEND Family Medicine
DX: R05 Cough (principal)
CPT/HCPCS: 71046

== ENCOUNTER → 2017-11-22 | Outpatient (CLI) | payer MEDICARE, BC ==
--- NOTE | 2017-11-22 19:25 | CONS ---
CONSULTATION DATE OF SERVICE: 11/22/2017 This is a 42-year-old female patient who was referred to me for evaluation of sleep apnea. The patient has a history of Langerhans cell histiocytosis. The patient underwent bilateral lung transplant in 2017 at [facility]. Since then she has been maintained on immunosuppressive treatment with Prograf and she is also on 5 mg of prednisone. She is gaining weight. During her recent evaluation at the transplant center at [facility] she complained of fatigue and snoring, and this raised the suspicion for obstructive sleep apnea. For that reason, the patient was referred to me for further evaluation. No reported history of witnessed apneas. Her current Randolph score is 15. She goes to bed between 8 and 9 p.m., wakes up at 6 a.m. in the morning. No family history of obstructive sleep apnea in this patient. No sleep paralysis. No hallucinations. No cataplexy. No history of any motor vehicle accident because of feeling drowsy or sleepy. PAST MEDICAL HISTORY: 1. Langerhans cell histiocytosis. 2. Bilateral lung transplantation. 3. History of skin cancer. 4. Rheumatoid arthritis. 5. Raynaud disease. PAST SURGICAL HISTORY: 1. Bilateral lung transplantation in 2017. 2. Multiple bronchoscopies. 3. Multiple lung biopsies. 4. Insertion and removal of port. 5. Resection of skin cancer. OUTPATIENT MEDICATION LIST: 1. Prednisone 5 mg once a day. 2. Prograf 3 mg in the morning and 2 in the evening. 3. Vitamin D 2000 units daily. 4. Calcium 1200 mg p.o. daily. 5. Bactrim Double Strength 3 times a week. 6. Trazodone 150 mg p.o. daily. 7. Ferrous sulfate 325 mg p.o. daily. 8. Magnesium replacement. 9. Acyclovir 400 mg p.o. daily. 10.Omeprazole 20 mg p.o. daily. 11.Zyrtec 10 mg p.o. daily. 12.Prilosec 10 mg p.o. daily. 13.Lasix 40 mg b.i.d. 14.Potassium 20 mEq p.o. daily. SOCIAL HISTORY: Nonsmoker. No history of alcoholism. No history of IV drugs. FAMILY HISTORY: Negative for sleep apnea. REVIEW OF SYSTEMS: Twelve-point review of system was done. Positive findings are all mentioned above in the history of present illness. PHYSICAL EXAMINATION: BP is 125/78, pulse 74, respirations 16, temperature 98.2, saturation 98% on room air. Weight is 233. Height is 5 feet 4 inches. Neck size 15-1/2 inches. GENERAL APPEARANCE: Calm, comfortable. Head is atraumatic, normocephalic. NECK: Supple. No JVD. No goiter or neck mass. Mallampati class III. LUNGS: Clear to auscultation. HEART: Heart sounds are regular rate and rhythm. Normal S1, S2. No S3, S4. No murmurs. Sternotomy scar is clean. ABDOMEN: Soft, nontender. No organomegaly. EXTREMITIES: No edema. No cyanosis or clubbing. IMPRESSION: 1. Obstructive sleep apnea clinically suspected. My overall suspicion is low, yet based on request of [facility] Transplant Team, will proceed with a screening polysomnogram looking for any significant sleep breathing disorder. 2. Chronic fatigue and some degree of sleepiness; Randolph score is 15. 3. Snoring. 4. Bilateral lung transplantation for Langerhans cell histiocytosis. 5. History of skin cancer. 6. History of rheumatoid arthritis. 7. Raynaud disease. 8. Obesity with a body mass index of 39.9. PLAN: 1. Encourage weight loss. 2. Implement good sleep hygiene measures. 3. Trazodone 100 mg for sleep induction and maintenance. 4. Proceed with screening polysomnogram, looking for any significant sleep breathing disorder that needs to be treated in the future. MMODL / IJN: [id number] /
== END | disposition home or self-care (01) ==
LOC: SLEEP 16:14
PROVIDERS: ATTEND Internal Medicine Critical Care Medicine
DX: R06.83 Snoring (principal); R53.82 Chronic fatigue, unspecified; I73.00 Raynaud's syndrome without gangrene; E66.9 Obesity, unspecified; Z68.39 Body mass index [BMI] 39.0-39.9, adult; Z85.828 Personal history of other malignant neoplasm of skin; Z87.39 Personal history of other diseases of the musculoskeletal system and connective tissue; Z94.2 Lung transplant status; Z86.2 Personal history of diseases of the blood and blood-forming organs and certain disorders involving the immune mechanism; Z98.890 Other specified postprocedural states; Z79.52 Long term (current) use of systemic steroids; Z79.899 Other long term (current) drug therapy; Z79.2 Long term (current) use of antibiotics
CPT/HCPCS: 99211

== ENCOUNTER 2017-12-15 18:13 | Emergency (ER) | payer MEDICARE, BC ==
[2017-12-15] MEDS ORDERED: LIDOCAINE 1% INJ 10MG/ML (20 ML MDV) SQ ONE (20:02)
--- NOTE | 2017-12-15 20:08 | ED ---
Wound/Laceration HPI - General Chief Complaint: Wound/Laceration Stated Complaint: Hand laceration/Transplant PT Time Seen by Provider: 12/15/17 19:23 Source: patient Limitations: no limitations - History of Present Illness Initial Comments: 42-year-old female with past medical history of HTN, double lung transplant 2016 who presents today for chief complaint of laceration right thumb. Patient states that around 5:30 PM she was opening a can when she cut the inner aspect of her right thumb. She states she is able to range at the thumb, no numbness, tingling loss of sensation or color change. She missed to pain at the site of the laceration. Patient denies any ALLERGIES. Patient is on chronic steroid use as well as immunosuppressive medication. Upon arrival patient appears well. No active bleeding. Pt tetanus updated within last 5 years. Patient's vital signs stable. - Related Data Home Medications Medication Instructions Recorded Confirmed Omeprazole [PriLOSEC] 20 mg PO AC-BRKFST 07/01/15 12/15/17 Cetirizine HCl 10 mg PO DAILY 12/26/15 12/15/17 Acyclovir 400 mg PO DAILY 09/30/16 12/15/17 Calcium Carbonate [Calcium] 600 mg PO TID-W/MEALS 09/30/16 12/15/17 Cholecalciferol (Vitamin D3) 2,000 unit PO DAILY 09/30/16 12/15/17 [Vitamin D3] Sulfamethox-Tmp 800-160Mg [Bactrim 1 tab PO MOWEFR 09/30/16 12/15/17 DS 800-160 mg] Tacrolimus [Prograf] 2 mg PO Q12H 09/30/16 12/15/17 predniSONE 15 mg PO DAILY 09/30/16 12/15/17 Clindamycin Phosphate [Cleocin T] 1 applic TOPICAL QID PRN 12/15/17 12/15/17 Ferrous Sulfate [Feosol] 325 mg PO DAILY 12/15/17 12/15/17 Furosemide [Lasix] 40 mg PO BID 12/15/17 12/15/17 Magnesium Gluconate [Magonate] 500 mg PO BID 12/15/17 12/15/17 Polyethylene Glycol 3350 [Miralax] 17 gm PO DAILY PRN 12/15/17 12/15/17 Potassium Chloride ER [K-Dur 20] 20 meq PO DAILY 12/15/17 12/15/17 metroNIDAZOLE 0.75% CREAM 1 applic TOPICAL BID PRN 12/15/17 12/15/17 [Metrocream] Previous Rx's Medication Instructions Recorded Cephalexin [Keflex] 500 mg PO Q12HR 5 Days #10 cap 12/15/17 Allergies Allergy/AdvReac Type Severity Reaction Status Date / Time No Known Allergies Allergy Verified 12/15/17 19:28 Review of Systems ROS Statement: Those systems with pertinent positive or pertinent negative responses have been documented in the HPI. ROS Other: All systems not noted in ROS Statement are negative. Constitutional: Denies: fever, chills ENT: Denies: ear pain, throat pain Respiratory: Denies: cough, dyspnea, wheezes, hemoptysis, stridor Cardiovascular: Denies: chest pain, palpitations Endocrine: Denies: fatigue Gastrointestinal: Denies: abdominal pain, nausea, vomiting, diarrhea, constipation Genitourinary: Denies: urgency, dysuria Musculoskeletal: Denies: back pain Skin: Reports: as per HPI, lesions (1.5 cm laceration medially aspect of right thumb). Denies: rash Neurological: Denies: headache, weakness, numbness, paresthesias, confusion Past Medical History Past Medical History: GERD/Reflux, Hearing Disorder / Deafness, Hypertension, Osteoarthritis (OA), Respiratory Disorder Additional Past Medical History / Comment(s): Histiocytosis X, bilateral lung transplantation, acid reflux, Raynaud's disease, generalized anxiety disorder History of Any Multi-Drug Resistant Organisms: None Reported Additional Past Surgical History / Comment(s): open lung biopsy- langerhans cell histocytosis Past Anesthesia/Blood Transfusion Reactions: No Reported Reaction Past Psychological History: No Psychological Hx Reported, Anxiety Smoking Status: Former smoker Past Alcohol Use History: Occasional Past Drug Use History: None Reported - Past Family History Mother Family Medical History: No Reported History General Exam - General Exam Comments Initial Comments: General: The patient is awake and alert, in no distress, and does not appear acutely ill. Eye: Pupils are equal, round and reactive to light, extra-ocular movements are intact. No nystagmus. There is normal conjunctiva bilaterally. No signs of icterus. Ears, nose, mouth and throat: There are moist mucous membranes and no oral lesions. Cardiovascular: There is a regular rate and rhythm. No murmur, rub or gallop is appreciated. Respiratory: Lungs are clear to auscultation, respirations are non-labored, breath sounds are equal. No wheezes, stridor, rales, or rhonchi. Musculoskeletal: Normal ROM at the MCP, PIP AND DIP joints of right hand, no tenderness. Strength 5/5 with all motions of MCP, DIP and PIP joints of the right hand. Sensation intact. Radial pulses equal bilaterally 2+. Capillary refill <2 seconds. Neurological: A&O x 3. CN II-XII intact, There are no obvious motor or sensory deficits. Coordination appears grossly intact. Speech is normal. Skin: Skin is warm and dry and no rashes. 1.5 cm laceration superficial of the right medial thumb near web space. No active bleeding. Psychiatric: Cooperative, appropriate mood & affect, normal judgment. Limitations: no limitations Course Vital Signs 12/15/17 12/15/17 18:29 21:10 Temperature 97.7 F 98.2 F Pulse Rate 78 74 Respiratory 18 16 Rate Blood Pressure 127/78 125/80 O2 Sat by Pulse 100 98 Oximetry Procedures - Laceration Laceration #1 Consent Obtained: verbal consent Time Out Performed: Yes Indication: laceration Site: hand Size (cm): 1 (1.5 actual size) Description: linear Depth: simple, single layer Anesthetic Used: lidocaine 1% Anesthesia Technique: local infiltration Amount (mls): 3 Pre-repair: wound explored, irrigated extensively, deep structures intact Type of Sutures: nylon Size of Sutures: 5-0 Number of Sutures: 4 Technique: simple, interrupted Patient Tolerated Procedure: well, no complications Medical Decision Making - Medical Decision Making Wound laceration repaired using sterile procedure. Extensively irrigated and explored, no evidence of FB or obvious tendonous injury at this time-although there could be possibility of occult tendonous injury. At this time I feel pt is stable for d/c with f/u in 7-10 days for suture removal. Pt was given verbal suture care instruction as well as signs and symptoms of infection. Pt will be given orthopedic f/u for any decreased ROM, otherwise f/u with primary care provider in 1-2 days. Return parameters discussed, patient verbalizes understanding. Patient may use [id number] ibuprofen and Tylenol for pain management as needed. Case discussed in detail with Dr. Campoverde in detail who understand pt PMH, he agrees with impression and plan Disposition Clinical Impression: Laceration of right thumb Disposition: HOME SELF-CARE Condition: Good Instructions: Care For Your Stitches (ED), Laceration (ED) Additional Instructions: Please use medication as discussed. Please follow-up with family doctor in the next 2 days. Please follow-up here at the emergency department for suture removal in the next 7-10 days. Please return to emergency room if the symptoms increase or worsen or for any other concerns. Prescriptions: Cephalexin [Keflex] 500 mg PO Q12HR 5 Days #10 cap Is patient prescribed a controlled substance at d/c from ED?: No Referrals: Fercho Huynh MD [Primary Care Provider] - 1-2 days Tyler Santamaria MD [STAFF PHYSICIAN] - 1-2 days Time of Disposition: 20:57
[2017-12-15 21:11] VITALS: BP 125/80; PULSE 74; RESP 16; TEMP 98.2
== END 2017-12-15 21:10 | disposition home or self-care (01) ==
LOC: EC 18:13
DX: S61.011A Laceration without foreign body of right thumb without damage to nail, initial encounter (principal); I10 Essential (primary) hypertension; K21.9 Gastro-esophageal reflux disease without esophagitis; M19.90 Unspecified osteoarthritis, unspecified site; F41.9 Anxiety disorder, unspecified; Z87.891 Personal history of nicotine dependence; Z79.52 Long term (current) use of systemic steroids; Z79.899 Other long term (current) drug therapy; Z94.2 Lung transplant status; W45.8XXA Other foreign body or object entering through skin, initial encounter
CPT/HCPCS: 99282 ×2; 12001 ×2; J2001

== ENCOUNTER → 2017-12-21 | Outpatient (CLI) | payer MEDICARE, BC ==
--- NOTE | 2017-12-21 16:36 | US ---
EXAMINATION TYPE: US venous doppler duplex LE BI DATE OF EXAM: 12/21/2017 4:19 PM COMPARISON: NONE CLINICAL HISTORY: 42-year-old female R60.0 LOCALIZED EDEMA. Double lung transplant 03/23. Bilateral le g and feet edema since surgery SIDE PERFORMED: Bilateral TECHNIQUE: The lower extremity deep venous system is examined utilizing real time linear array sonog destiny with graded compression, doppler sonography and color-flow sonography. VESSELS IMAGED: External Iliac Vein (EIV) Common Femoral Vein Deep Femoral Vein Greater Saphenous Vein * Femoral Vein Popliteal Vein Small Saphenous Vein * Proximal Calf Veins (* superficial vessels) Right Leg: No evidence of DVT as visualized Left Leg: No evidence of DVT as visualized IMPRESSION: No evidence for DVT within the bilateral lower extremities imaged from the groin to the knees.
== END | disposition home or self-care (01) ==
LOC: RADUSWWP 15:46
PROVIDERS: ATTEND Family Medicine
DX: R60.0 Localized edema (principal)
CPT/HCPCS: 93970

== ENCOUNTER → 2017-12-22 | Outpatient (CLI) | payer MEDICARE, BC ==
--- NOTE | 2017-12-22 10:30 | ECHOF ---
Referral Reason:R60.0 Edema MEASUREMENTS -------- HEIGHT: 162.6 cm WEIGHT: 104.3 kg BP: 134/82 RVIDd: 3.1 cm (< 3.3) IVSd: 1.1 cm (0.6 - 1.1) LVIDd: 3.8 cm (3.9 - 5.3) LVPWd: 1.1 cm (0.6 - 1.1) IVSs: 1.5 cm LVIDs: 2.6 cm LVPWs: 1.5 cm LA Diam: 3.1 cm (2.7 - 3.8) LAESV Index (A-L): 24.60 ml/m Ao Diam: 3.2 cm (2.0 - 3.7) AV Cusp: 1.9 cm (1.5 - 2.6) MV EXCURSION: 18.525 mm (> 18.000) MV EF SLOPE: 73 mm/s (70 - 150) EPSS: 0.4 cm MV E David: 1.24 m/s MV DecT: 192 ms MV A David: 0.79 m/s MV E/A Ratio: 1.57 RAP: 5.00 mmHg RVSP: 22.99 mmHg FINDINGS -------- Sinus rhythm. This was a technically adequate study. The left ventricular size is normal. There is borderline concentric left ventricular hypertrophy. Overall left ventricular systolic function is normal with, an EF between 55 - 60 %. The right ventricle is normal in size. Normal LA size by volume 22+/-6 ml/m2. The right atrium is normal in size. The aortic valve is trileaflet and appears structurally normal. The mitral valve is normal. Mild tricuspid regurgitation present. Right ventricular systolic pressure is normal at < 35 mmHg. The pulmonic valve was not well visualized. The aortic root size is normal. Normal inferior vena cava with normal inspiratory collapse consistent with estimated right atrial pre ssure of 5 mmHg. There is no pericardial effusion. CONCLUSIONS -------- 1. Sinus rhythm. 2. This was a technically adequate study. 3. The left ventricular size is normal. 4. There is borderline concentric left ventricular hypertrophy. 5. Overall left ventricular systolic function is normal with, an EF between 55 - 60 %. 6. The right ventricle is normal in size. 7. Normal LA size by volume 22+/-6 ml/m2. 8. The right atrium is normal in size. 9. The aortic valve is trileaflet and appears structurally normal. 10. The mitral valve is normal. 11. Mild tricuspid regurgitation present. 12. Right ventricular systolic pressure is normal at < 35 mmHg. 13. The pulmonic valve was not well visualized. 14. The aortic root size is normal. 15. Normal inferior vena cava with normal inspiratory collapse consistent with estimated right atrial pressure of 5 mmHg. 16. There is no pericardial effusion. TIRE ROOM SUPERVISOR: Shira Bañuelos RDCS
== END ==
LOC: RADECHMAIN 09:15
PROVIDERS: ATTEND Family Medicine
DX: I07.1 Rheumatic tricuspid insufficiency (principal)
CPT/HCPCS: 93306

== ENCOUNTER → 2018-02-06 | Outpatient (CLI) | payer MEDICARE, BC ==
--- NOTE | 2018-02-06 12:38 | XR ---
EXAMINATION TYPE: XR chest 2V DATE OF EXAM: 02/06/2018 COMPARISON: NONE HISTORY: History of double lung transplant. Current cough and congestion. TECHNIQUE: Frontal and lateral views of the chest are obtained. FINDINGS: Postsurgical changes are seen of the sternum with mediastinal clips. There is no focal air space opacity, pleural effusion, or pneumothorax seen. The cardiac silhouette size is within normal limits. The osseous structures are intact. IMPRESSION: No acute cardiopulmonary process.
== END | disposition home or self-care (01) ==
LOC: PROCWHC3 11:04
PROVIDERS: ATTEND Internal Medicine
DX: R05 Cough (principal); R53.83 Other fatigue; Z94.2 Lung transplant status
CPT/HCPCS: 71046; 87252; 87498; 87502; 87529; 87634; 87798

== ENCOUNTER → 2018-03-31 | Outpatient (CLI) | payer MEDICARE, BC ==
--- NOTE | 2018-03-31 15:57 | XR ---
EXAMINATION TYPE: XR lumbar spine 2 or 3V DATE OF EXAM: 03/31/2018 CLINICAL HISTORY: pain TECHNIQUE: Three views of the lumbar spine are submitted. COMPARISON: None. FINDINGS: There are 5 lumbar type vertebral bodies identified. The lumbar spine shows satisfactory alignment w ithout evidence of acute fracture or dislocation. Vertebral body heights are within normal limits. Disc spaces are within normal limits. The overlying soft tissue appears unremarkable. IMPRESSION: No acute fracture or dislocation is seen in the lumbar spine. ICD 10 NO FRACTURE, INITIAL EVALUATION
== END ==
LOC: RADXRMAIN 15:40
PROVIDERS: ATTEND Family Medicine
DX: M54.5 Low back pain (principal)
CPT/HCPCS: 72100

== ENCOUNTER → 2019-01-16 | Outpatient (CLI) | payer MEDICARE, BC ==
--- NOTE | 2019-01-16 17:41 | PN ---
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 The patient is coming in for further advice regarding her MEGAN treatment. I diagnosed this patient having obstructive sleep apnea back in 2018, and at that time her apnea-hypopnea index was 22, worse in REM and worse in a supine body position. The patient was symptomatic. Her [place] score was quite elevated and she was fatigued and tired. For that reason, I decided to proceed with a CPAP titration, and the patient was ultimately titrated to a BiPAP at a pressure of 13/9 cm of water with a back-up rate of 12. She was given AirFit P10 medium-sized nose pillows. She was lost to followup and I have not seen her since. She did not come back for a compliancy check. Apparently her health was gradually getting worse, as the patient developed chronic lung rejection and there has been steady loss in her lung capacity; currently her FEV1 seems to be as low as 31%. During this time she was placed back on oxygen and currently she is running oxygen at 2 L/minute nasal cannula. She is on a combination of immunosuppression, including Prograf and prednisone. She also was placed on a clinical trial utilizing various immunosuppressive agents through [facility]. Note that her weight has remained stable at 235. She was asked to come back by the physician at [facility] to re-initiate her BiPAP treatment. Note that the patient has not demonstrated adequate compliancy and her insurance has refused to pay for her BiPAP machine. For now, the patient is coming back to see me. She is quite symptomatic. She is also short of breath and she has exertional dyspnea. I checked her BiPAP unit, and while on a pressure of 13/9, the patient was able to achieve an apnea-hypopnea index of less than 5. She was averaging only 3.5 hours of BiPAP use per night and she used the machine only for 7 out of 365 days. Her current [place] Score is 13. She is symptomatic and she is interested in going back on her BiPAP treatment. BiPAP titration will be needed accordingly. REVIEW OF SYSTEMS: CONSTITUTIONAL: A few pounds' weight gain. She has chronic fatigue, tiredness and sleepiness. She has also exertional dyspnea and her breathing has gotten worse. Currently she is on oxygen at 2 L/minute nasal cannula. She is afebrile. She has had several lung infections, all of them treated on an outpatient basis through [facility]. I do not have the detailed records on today's evaluation. She has developed skin cancer as a complication of immunosuppression. She has Raynaud's phenomenon. She is snoring. She is on oxygen at 2 L/minute nasal cannula at all times. She has a mild dry cough. No chest pain. No pleurisy. No hemoptysis. No altered mentation. PHYSICAL EXAMINATION: VITAL SIGNS: BP is 116/79, pulse 92, respirations 18, temperature 96.8, saturation 99% on room air. Height is 5 feet 4 inches, weight 235. [place] score is 13. BMI is 40.3. GENERAL APPEARANCE: Obese, calm, comfortable. HEAD: Atraumatic, normocephalic. NECK: Supple. No JVD. No goiter or neck masses. Mallampati class IV. LUNGS: Diminished breath sounds in the lungs along with a few scattered expiratory rhonchi and wheeze. HEART: Heart sounds are regular rate and rhythm. Normal S1, S2. No S3, S4. No murmurs. ABDOMEN: Obese, soft, nontender. No organomegaly. No direct tenderness, rebound tenderness or guarding. EXTREMITIES: Trace edema. There is no cyanosis or clubbing. SKIN: No open wounds or sores. The patient has cushingoid features. NEUROLOGIC: Alert and oriented x3. No focal neurological deficits. IMPRESSION: 1. Obstructive sleep apnea, moderate in severity, with an apnea/hypopnea index of 22, worse during REM, worse in a supine body position. The patient has failed to demonstrate adequate compliance with BiPAP, which was set at a pressure of 13/9 cm of water. She is coming in for re-evaluation. Insurance has declined to pay for the unit, as the patient did not demonstrate adequate compliancy within the first 30 to 90 days. It was recommended for this patient to follow up with her MEGAN and restart on treatment, especially with her progressive decline in lung capacity and function. 2. History of bilateral lung transplantation for Langerhans cells histiocytosis. 3. Chronic lung rejection, currently on immunosuppression treatment. 4. Chronic hypoxic respiratory failure, currently on 2 L of oxygen by nasal cannula. 5. History of skin cancer. 6. History of rheumatoid arthritis. 7. History of Raynaud's phenomenon. 8. Chronic fatigue and sleepiness. Current [place] Score is 13. 9. Obesity with a body mass index of 40.3. PLAN: 1. Will set up this patient with another BiPAP titration. Will make the appropriate adjustments accordingly. It is likely that the patient's BiPAP setting needs to be changed, and the appropriate adjustments will be done. We will re-qualify this patient for treatment. I am hoping that within the next 30 to 90 days she will be able to demonstrate adequate compliancy. It is very possible that the patient will need a combination of BiPAP therapy and oxygen. This will be determined at the time of the titration. 2. Encourage weight loss. The patient was advised to lose weight, especially since she is seeking another transplantation and she needs to lose a considerable amount of weight accordingly. 3. Implement good sleep hygiene measures. 4. I would like to see this patient also in the pulmonary clinic, taking into account her chronic lung disease and progressive decline in lung function, and collaborate with [facility] should there be any pulmonary complications that arise during her stay here in [facility]. Will continue to follow. MMODL / IJN: [id number] /
== END | disposition home or self-care (01) ==
LOC: SLEEP 15:47
PROVIDERS: ATTEND Internal Medicine Critical Care Medicine
DX: G47.33 Obstructive sleep apnea (adult) (pediatric) (principal); J96.11 Chronic respiratory failure with hypoxia; E66.9 Obesity, unspecified; Z68.41 Body mass index [BMI] 40.0-44.9, adult; Z87.39 Personal history of other diseases of the musculoskeletal system and connective tissue; Z85.820 Personal history of malignant melanoma of skin; Z99.89 Dependence on other enabling machines and devices

== ENCOUNTER → 2019-02-26 | Outpatient (CLI) | payer MEDICARE, BC ==
--- NOTE | 2019-02-26 12:40 | XR ---
EXAMINATION TYPE: XR chest 2V DATE OF EXAM: 02/26/2019 COMPARISON: 02/06/2018 HISTORY: Chest pain TECHNIQUE: Frontal and lateral views of the chest are obtained. FINDINGS: There is no focal air space opacity. Small right-sided pleural effusion noted. No evidence for pneumothorax. No pleural effusion. The cardiac silhouette size is within normal limits. The osseous structures are grossly intact. IMPRESSION: 1. Small right-sided pleural effusion without focal consolidation at this time. There may be mild at electasis at the right lung base.
== END | disposition home or self-care (01) ==
LOC: RADXRMAIN 12:13
PROVIDERS: ATTEND Internal Medicine
DX: Z48.24 Encounter for aftercare following lung transplant (principal); Z94.2 Lung transplant status
CPT/HCPCS: 71046; 87498; 87502; 87634; 87798

== ENCOUNTER → 2020-05-02 | Outpatient (CLI) | payer MEDICARE, BC ==
--- NOTE | 2020-05-06 11:23 | MM ---
Reason for exam: screening (asymptomatic). Last mammogram was performed 4 years and 11 months ago. History: Patient has history of other cancer at age 42 and is nulliparous. Physical Findings: A clinical breast exam by your physician is recommended on an annual basis and results should be correlated with mammographic findings. MG 3D Screening Mammo W/Cad Bilateral CC and MLO view(s) were taken. Prior study comparison: June 10, 2015, bilateral MG screening mammo w CAD. April 07, 2012, bilateral digital screening mammo w/CAD. The breast tissue is heterogeneously dense. This may lower the sensitivity of mammography. Previous mammotome biopsy in the right breast x 2. Fat necrosis calcifications, posteriorly on both sides. Stable 9-10 o'clock left global asymmetry. No significant changes when compared with prior studies. ASSESSMENT: Benign, BI-RAD 2 RECOMMENDATION: Routine screening mammogram of both breasts in 1 year.
== END | disposition home or self-care (01) ==
LOC: RADMAMWWP 09:12
PROVIDERS: ATTEND Family Medicine
DX: Z12.31 Encounter for screening mammogram for malignant neoplasm of breast (principal)
CPT/HCPCS: 77063; 77067

== ENCOUNTER → 2021-08-28 | Outpatient (CLI) | payer MEDICARE, BC ==
--- NOTE | 2021-08-31 16:52 | MM ---
Reason for Exam: Screening (asymptomatic). Last mammogram was performed 1 year(s) and 4 month(s) ago. Patient History: Menarche at age 12. Patient has no children. Other cancer, age 42. Maternal aunt had breast cancer. Last menstrual period: 08/19/2021 Risk Values: Vaishali 5 year model risk: 1.0%. NCI Lifetime model risk: 11.6%. Prior Study Comparison: 04/07/2012 Bilateral Screening Mammogram, [facility]. 06/10/2015 Bilateral Screening Mammogram, [facility]. 05/02/2020 Bilateral Screening Mammogram, [facility]. Tissue Density: There are scattered fibroglandular densities. Findings: Analyzed By CAD. There is some developing coarse calcification within the posterior right breast. A core markers within the right breast. Stable asymmetric densities within the left breast No suspicious groups of microcalcifications, spiculated or lobular masses, architectural distortion or other secondary signs of malignancy are mammographically apparent. Overall Assessment: Benign, BI-RAD 2 Management: Screening Mammogram of both breasts in 1 year. A negative mammogram report should not preclude additional follow up of suspicious palpable abnormalities. Patient should continue monthly self breast exam. A clinical breast exam by your physician is recommended on an annual basis and results should be correlated with mammographic findings. Electronically signed and approved by: Javon Tiwari D.O. Radiologis
== END | disposition home or self-care (01) ==
LOC: RADMAMWWP 07:44
PROVIDERS: ATTEND Family Medicine
DX: Z12.31 Encounter for screening mammogram for malignant neoplasm of breast (principal); R92.1 Mammographic calcification found on diagnostic imaging of breast; Z80.3 Family history of malignant neoplasm of breast
CPT/HCPCS: 77063; 77067

== ENCOUNTER 2022-10-22 18:31 | Emergency (ER) | payer MEDICARE, BC ==
[2022-10-22 19:08] VITALS: TEMP 98.4
--- NOTE | 2022-10-22 19:56 | ED ---
SOB HPI - General Chief Complaint: Shortness of Breath Stated Complaint: poss blood clot in Lungs/pending Lung Transplant Time Seen by Provider: 10/22/22 19:40 Source: patient Mode of arrival: ambulatory Limitations: no limitations - History of Present Illness Initial Comments: 47-year-old female with history of double lung transplant back in 2017 due to langerhans cell histocytosis presenting with chief complaint of shortness of breath and pain to the bilateral sides of the chest. Symptoms have been ongoing since Tuesday. She is chronically on 4 L of oxygen at home. She was instructed by her medical team to come to the ER and rule out pulmonary embolism. She follows at [facility]. She denies increased lower extremity swelling, recent surgery, recent travel, abdominal pain, palpitations. - Related Data Home Medications Medication Instructions Recorded Confirmed Omeprazole [PriLOSEC] 20 mg PO AC-BRKFST 07/01/15 12/15/17 Cetirizine HCl 10 mg PO DAILY 12/26/15 12/15/17 Acyclovir 400 mg PO DAILY 09/30/16 12/15/17 Calcium Carbonate [Calcium] 600 mg PO TID-W/MEALS 09/30/16 12/15/17 Cholecalciferol (Vitamin D3) 2,000 unit PO DAILY 09/30/16 12/15/17 [Vitamin D3] Sulfamethox-Tmp 800-160Mg [Bactrim 1 tab PO MOWEFR 09/30/16 12/15/17 DS 800-160 mg] Tacrolimus [Prograf] 2 mg PO Q12H 09/30/16 12/15/17 predniSONE 15 mg PO DAILY 09/30/16 12/15/17 Clindamycin Phosphate [Cleocin T] 1 applic TOPICAL QID PRN 12/15/17 12/15/17 Ferrous Sulfate [Feosol] 325 mg PO DAILY 12/15/17 12/15/17 Furosemide [Lasix] 40 mg PO BID 12/15/17 12/15/17 Magnesium Gluconate [Magonate] 500 mg PO BID 12/15/17 12/15/17 Potassium Chloride ER [K-Dur 20] 20 meq PO DAILY 12/15/17 12/15/17 metroNIDAZOLE 0.75% CREAM 1 applic TOPICAL BID PRN 12/15/17 12/15/17 [Metrocream 0.75%] polyethylene glycoL 3350 [Miralax] 17 gm PO DAILY PRN 12/15/17 12/15/17 Previous Rx's Medication Instructions Recorded Cephalexin [Keflex] 500 mg PO Q12HR 5 Days #10 cap 12/15/17 Allergies Allergy/AdvReac Type Severity Reaction Status Date / Time No Known Allergies Allergy Verified 10/22/22 19:07 Review of Systems ROS Statement: Those systems with pertinent positive or pertinent negative responses have been documented in the HPI. ROS Other: All systems not noted in ROS Statement are negative. Past Medical History Past Medical History: GERD/Reflux, Hearing Disorder / Deafness, Hypertension, Osteoarthritis (OA), Respiratory Disorder Additional Past Medical History / Comment(s): Histiocytosis X, bilateral lung transplantation, acid reflux, Raynaud's disease, generalized anxiety disorder History of Any Multi-Drug Resistant Organisms: None Reported Additional Past Surgical History / Comment(s): open lung biopsy- langerhans cell histocytosis Past Anesthesia/Blood Transfusion Reactions: No Reported Reaction Past Psychological History: No Psychological Hx Reported, Anxiety Smoking Status: Never smoker Past Alcohol Use History: Occasional Past Drug Use History: None Reported - Past Family History Mother Family Medical History: No Reported History General Exam Limitations: no limitations General appearance: alert, in no apparent distress Head exam: Present: atraumatic, normocephalic, normal inspection Eye exam: Present: normal appearance, EOMI Neck exam: Present: normal inspection, full ROM Respiratory exam: Present: normal lung sounds bilaterally. Absent: respiratory distress, wheezes, rales, rhonchi, stridor Cardiovascular Exam: Present: regular rate, normal rhythm, normal heart sounds. Absent: systolic murmur, diastolic murmur, rubs, gallop, clicks Neurological exam: Present: alert, oriented X3, CN II-XII intact Psychiatric exam: Present: normal affect, normal mood Skin exam: Present: warm, dry, intact, normal color. Absent: rash Course Vital Signs 10/22/22 10/22/22 10/22/22 19:03 19:41 19:44 Temperature 98.4 F Pulse Rate 87 77 Respiratory 18 20 20 Rate Blood Pressure 149/88 130/82 O2 Sat by Pulse 99 100 Oximetry 10/22/22 10/22/22 21:00 22:21 Temperature Pulse Rate 69 71 Respiratory 18 16 Rate Blood Pressure 123/78 134/73 O2 Sat by Pulse 100 99 Oximetry Medical Decision Making - Medical Decision Making Was pt. sent in by a medical professional or institution (MATTHEW Smith, MEDICAL MICROBIOLOGIST, urgent care, hospital, or custodial...) When possible be specific @ -Advised to come in by her medical team [facility] Did you speak to anyone other than the patient for history (EMS, parent, family, police, friend...)? What history was obtained from this source @ -No Did you review nursing and triage notes (agree or disagree)? Why? @ -I reviewed and agree with nursing and triage notes Were old charts reviewed (outside hosp., previous admission, EMS record, old EKG, old radiological studies, urgent care reports/EKG's, custodial records)? Report findings @ -No old charts were reviewed Differential Diagnosis (chest pain, altered mental status, abdominal pain women, abdominal pain men, vaginal bleeding, weakness, fever, dyspnea, syncope, headache, dizziness, GI bleed, back pain, seizure, CVA, palpatations, mental health, musculoskeletal)? @ -MDM Differential Dyspnea: Coronary syndrome, arrhythmia, tamponade, asthma, COPD, pulmonary embolism, pneumonia, pneumothorax, pulmonary effusion, anaphylaxis, diabetic ketoacidosis, flailed chest, pulmonary contusion, diaphragmatic rupture, anemia, neuromuscular this is not meant to be an all-inclusive list. EKG interpreted by me (3pts min.). @ -Sinus rhythm, ventricular rate 77. IA interval 137. QRS 106. QTC 403. QTC 435. No ischemic changes. X-rays interpreted by me (1pt min.). @ -Chronic changes without acute pulmonary process. COPD. CT interpreted by me (1pt min.). @ -No evidence of pulmonary embolism. Small scattered air space opacities in the right upper lung correlate for atypical pneumonia. Bronchiectasis. Dominantly involving the lower lobe airways. Similar appearing left main bronchus focal diverticulum and left pulmonary artery focal stricture. Findings likely secondary to postsurgical change U/S interpreted by me (1pt. min.). @ -None done What testing was considered but not performed or refused? (CT, X-rays, U/S, labs)? Why? @ -None What meds were considered but not given or refused? Why? @ -None Did you discuss the management of the patient with other professionals (professionals i.e. MATTHEW Smith, MEDICAL MICROBIOLOGIST, lab, RT, psych nurse, adoption social worker, job training supervisor, teacher, morals squad police officer, field nurse case manager)? Give summary @ -No Was smoking cessation discussed for >3mins.? @ -No Was critical care preformed (if so, how long)? @ -No Were there social determinants of health that impacted care today? How? (Homelessness, low income, unemployed, alcoholism, drug addiction, transportation, low edu. Level, literacy, decrease access to med. care, retirement, rehab)? @ -No Was there de-escalation of care discussed even if they declined (Discuss DNR or withdrawal of care, Hospice)? DNR status @ -No What co-morbidities impacted this encounter? (DM, HTN, Smoking, COPD, CAD, Cancer, CVA, ARF, Chemo, Hep., AIDS, mental health diagnosis, sleep apnea, morbid obesity)? @ -History of double lung transplant Was patient admitted / discharged? Hospital course, mention meds given and route, prescriptions, significant lab abnormalities, going to OR and other pertinent info. @ -47-year-old female history of double lung transplant in 2017 presenting with chief complaint of dyspnea and chest soreness. She was advised to come here by her medical team at [facility] to rule out pulmonary embolism. Lab work shows no leukocytosis or anemia. Negative troponin. D-dimer 1.31. CT shows no evidence of pulmonary embolism. There is evidence for possible atypical pneumonia. Patient is chronically on azithromycin and Bactrim. Patient states that she will follow-up with her medical team at [facility] on Tuesday. Follow-up with PCP. Report back to ER with any new or worsening symptoms. Discussed return parameters and answered all questions. Patient conveyed verbal understanding and agreed to the plan. I discussed this case in detail with my attending Dr. Joy Undiagnosed new problem with uncertain prognosis? @ -No Drug Therapy requiring intensive monitoring for toxicity (Heparin, Nitro, In sulin, Cardizem)? @ -No Were any procedures done? @ -No Diagnosis/symptom? @ -Dyspnea; history of lung transplant Acute, or Chronic, or Acute on Chronic? @ -Acute; chronic Uncomplicated (without systemic symptoms) or Complicated (systemic symptoms)? @ -Uncomplicated Side effects of treatment? @ -No Exacerbation, Progression, or Severe Exacerbation? @ -No Poses a threat to life or bodily function? How? (Chest pain, [place], [place], pneumonia, PE, COPD, DKA, ARF, appy, cholecystitis, CVA, Diverticulitis, Homicidal, Suicidal, threat to staff... and all critical care pts) @ -Potential due to multiple comorbidities - Lab Data Result diagrams: 10/22/22 19:54 10/22/22 19:54 Lab Results 10/22/22 10/22/22 10/22/22 Range/Units 19:54 19:54 19:54 WBC 9.6 (3.8-10.6) k/uL RBC 4.16 (3.80-5.40) m/uL Hgb 11.6 (11.4-16.0) gm/dL Hct 34.5 (34.0-46.0) % MCV 83.0 (80.0-100.0) fL MCH 28.0 (25.0-35.0) pg MCHC 33.7 (31.0-37.0) g/dL RDW 13.2 (11.5-15.5) % Plt Count 168 (150-450) k/uL MPV 8.3 Neutrophils % 83 % Lymphocytes % 7 % Monocytes % 4 % Eosinophils % 4 % Basophils % 0 % Neutrophils # 8.0 H (1.3-7.7) k/uL Lymphocytes # 0.7 L (1.0-4.8) k/uL Monocytes # 0.4 (0-1.0) k/uL Eosinophils # 0.4 (0-0.7) k/uL Basophils # 0.0 (0-0.2) k/uL PT 9.8 (9.0-12.0) sec INR 0.9 (<1.2) APTT 23.3 (22.0-30.0) sec D-Dimer 1.31 H (<0.60) mg/L FEU Sodium 137 (137-145) mmol/L Potassium 3.8 (3.5-5.1) mmol/L Chloride 100 (98-107) mmol/L Carbon Dioxide 28 (22-30) mmol/L Anion Gap 9 mmol/L BUN 23 H (7-17) mg/dL Creatinine 1.61 H (0.52-1.04) mg/dL Est GFR (CKD-EPI)AfAm 44 (>60 ml/min/1.73 sqM) Est GFR (CKD-EPI)NonAf 38 (>60 ml/min/1.73 sqM) Glucose 97 (74-99) mg/dL Plasma Lactic Acid Percy (0.7-2.0) mmol/L Calcium 8.7 (8.4-10.2) mg/dL Total Bilirubin 0.4 (0.2-1.3) mg/dL AST 33 (14-36) U/L ALT 19 (4-34) U/L Alkaline Phosphatase 88 (38-126) U/L Troponin I (0.000-0.034) ng/mL Total Protein 7.3 (6.3-8.2) g/dL Albumin 4.3 (3.5-5.0) g/dL Influenza Type A (PCR) (Not Detectd) Influenza Type B (PCR) (Not Detectd) RSV (PCR) (Not Detectd) SARS-CoV-2 (PCR) (Not Detectd) 10/22/22 10/22/22 10/22/22 Range/Units 19:54 19:54 19:54 WBC (3.8-10.6) k/uL RBC (3.80-5.40) m/uL Hgb (11.4-16.0) gm/dL Hct (34.0-46.0) % MCV (80.0-100.0) fL MCH (25.0-35.0) pg MCHC (31.0-37.0) g/dL RDW (11.5-15.5) % Plt Count (150-450) k/uL MPV Neutrophils % % Lymphocytes % % Monocytes % % Eosinophils % % Basophils % % Neutrophils # (1.3-7.7) k/uL Lymphocytes # (1.0-4.8) k/uL Monocytes # (0-1.0) k/uL Eosinophils # (0-0.7) k/uL Basophils # (0-0.2) k/uL PT (9.0-12.0) sec INR (<1.2) APTT (22.0-30.0) sec D-Dimer (<0.60) mg/L FEU Sodium (137-145) mmol/L Potassium (3.5-5.1) mmol/L Chloride (98-107) mmol/L Carbon Dioxide (22-30) mmol/L Anion Gap mmol/L BUN (7-17) mg/dL Creatinine (0.52-1.04) mg/dL Est GFR (CKD-EPI)AfAm (>60 ml/min/1.73 sqM) Est GFR (CKD-EPI)NonAf (>60 ml/min/1.73 sqM) Glucose (74-99) mg/dL Plasma Lactic Acid Percy 1.0 (0.7-2.0) mmol/L Calcium (8.4-10.2) mg/dL Total Bilirubin (0.2-1.3) mg/dL AST (14-36) U/L ALT (4-34) U/L Alkaline Phosphatase (38-126) U/L Troponin I <0.012 (0.000-0.034) ng/mL Total Protein (6.3-8.2) g/dL Albumin (3.5-5.0) g/dL Influenza Type A (PCR) Not Detected (Not Detectd) Influenza Type B (PCR) Not Detected (Not Detectd) RSV (PCR) Not Detected (Not Detectd) SARS-CoV-2 (PCR) Not Detected (Not Detectd) Disposition Clinical Impression: Status post lung transplantation, Shortness of breath Disposition: HOME SELF-CARE Condition: Fair Instructions (If sedation given, give patient instructions): Dyspnea (ED) Additional Instructions: Follow-up with your team at [facility] on Tuesday. Report back to ER with any new or worsening symptoms. Is patient prescribed a controlled substance at d/c from ED?: No Referrals: Eric Jameson MD [Primary Care Provider] - 1-2 days Time of Disposition: 22:10
[2022-10-22 20:25] LABS: Basophils % (A) 0 %; Eosinophils # (A) 0.4 k/uL (0-0.7); Eosinophils % (A) 4 %; HCT 34.5 % (34.0-46.0); HGB 11.6 gm/dL (11.4-16.0); Lymphocytes # (A) 0.7 k/uL (1.0-4.8); Lymphocytes % (A) 7 %; MCHC 33.7 g/dL (31.0-37.0); Mean Platelet Volume 8.3; Monocytes # (A) 0.4 k/uL (0-1.0); Monocytes % (A) 4 %; Neutrophils % (A) 83 %; Platelet Count 168 k/uL (150-450); RBC 4.16 m/uL (3.80-5.40); RDW 13.2 % (11.5-15.5); WBC 9.6 k/uL (3.8-10.6)
--- NOTE | 2022-10-22 20:26 | XR ---
EXAMINATION TYPE: XR chest 2V DATE OF EXAM: 10/22/2022 8:04 PM COMPARISON: Chest radiographs from 02/26/2019 TECHNIQUE: XR chest 2V Frontal and lateral views of the chest. CLINICAL INDICATION:Female, 47 years old with history of difficulty breathing; FINDINGS: Lungs/Pleura: There is flattening of the diaphragm with increased lucency of the lungs. No evidence o f pneumothorax, pleural effusion or focal consolidation. Pulmonary vascularity: Unremarkable. Heart/mediastinum: Cardiomediastinal silhouette is unremarkable. Musculoskeletal: No acute osseous pathology. Midline sternotomy changes are noted. IMPRESSION: 1. Chronic changes without acute pulmonary process. 2. COPD.
[2022-10-22 20:37] LABS: ALT 19 U/L (4-34); AST 33 U/L (14-36); African American GFR (CKD) 44 (>60 ml/min/1.73 sqM); Albumin 4.3 g/dL (3.5-5.0); Alkaline Phosphatase 88 U/L (38-126); Anion Gap 9 mmol/L; Blood Urea Nitrogen 23 mg/dL (7-17); Calcium 8.7 mg/dL (8.4-10.2); Carbon Dioxide 28 mmol/L (22-30); Chloride 100 mmol/L (98-107); Glucose 97 mg/dL (74-99); Non-African American GFR(CKD) 38 (>60 ml/min/1.73 sqM); Potassium 3.8 mmol/L (3.5-5.1); Sodium 137 mmol/L (137-145); Total Bilirubin 0.4 mg/dL (0.2-1.3); Total Protein 7.3 g/dL (6.3-8.2)
[2022-10-22 20:41] LABS: INR 0.9 (<1.2)
[2022-10-22 20:42] LABS: Partial Thromboplastin Time 23.3 sec (22.0-30.0); Prothrombin Time 9.8 sec (9.0-12.0)
[2022-10-22] MEDS ORDERED: SODIUM CHLORIDE 0.9% 500 ML 500 ML IV ONE (21:20)
--- NOTE | 2022-10-22 21:47 | CT ---
EXAMINATION TYPE: CT chest angio for PE CT DLP: 315.8 mGycm, Automated exposure control for dose reduction was used. DATE OF EXAM: 10/22/2022 9:21 PM COMPARISON: 09/30/2016 CLINICAL INDICATION:Female, 47 years old with history of KEEGAN, CP, hx lung transplant; r/o PE TECHNIQUE/CONTRAST: CTA scan of the thorax is performed with IV Contrast, patient injected with 60 mL of Isovue 370, MIP images are created and reviewed these are created on a separate workstation.. FINDINGS: Pulmonary Artery: There is no evidence for a filling defect within the pulmonary vasculature to sugge st acute pulmonary embolism. The pulmonary artery is of normal size. Focal stricture of the left kingsley n artery as described below. Lungs/Pleura: Lung transplant changes. Clips seen in the mediastinum. Scattered airspace opacities ar e seen most pronounced in the right upper lung. Streaky atelectasis in the lung bases. No pneumothora x. There may be trace right pleural effusion present. Airway: Bronchiectasis is noted predominantly in the lung bases. No bronchial wall thickening. There is a bronchial diverticulum off the left mean bronchus. Similar to prior. Heart: Heart is within normal limits for size. Vasculature: No evidence of aortic aneurysm. Similar narrowing of the left pulmonary artery likely se condary to postsurgical stricture of at least 50%. Findings not significantly changed versus mildly i mproved from 09/30/2016. Mediastinum: No gross evidence of adenopathy. Musculoskeletal: Sternotomy wires are present. No acute osseous abnormalities Soft Tissues: Unremarkable. Lower neck: No significant findings. Upper Abdomen: No significant findings. IMPRESSION: 1. No evidence of pulmonary embolism. 2. Small scattered airspace opacities in the right upper lung correlate for atypical pneumonia. 3. Bronchiectasis. Predominantly involving the lower lobe airways. 4. Similar appearing left main bronchus focal diverticulum and left pulmonary artery focal stricture. Findings likely secondary to postsurgical change.
[2022-10-22 22:22] VITALS: BP 134/73; PULSE 71; RESP 16
== END 2022-10-22 22:25 | disposition home or self-care (01) ==
LOC: EC 18:31
DX: R06.02 Shortness of breath (principal); Z94.2 Lung transplant status; I10 Essential (primary) hypertension; K21.9 Gastro-esophageal reflux disease without esophagitis; M19.90 Unspecified osteoarthritis, unspecified site; Z79.899 Other long term (current) drug therapy; Z20.822 Contact with and (suspected) exposure to COVID-19
CPT/HCPCS: 36415; 93005; 85379; 80053; 83605; 84484; 85025; 85610; 85730; 87636; 71046; 71275; 99285; Q9967

== ENCOUNTER → 2022-11-16 | Outpatient (CLI) | payer MEDICARE, BC | LOC: CPPFTMAIN 10:20 | PROVIDERS: ATTEND Internal Medicine | DX: T86.810 Lung transplant rejection (principal); Z87.891 Personal history of nicotine dependence | CPT/HCPCS: 94060; 94726; 94729 ==

== ENCOUNTER → 2023-03-08 | Outpatient (CLI) | payer MEDICARE, BC | LOC: CPPFTMAIN 13:51 | PROVIDERS: ATTEND Internal Medicine | DX: Z94.2 Lung transplant status (principal); Z87.891 Personal history of nicotine dependence | CPT/HCPCS: 94060; 94726; 94729 ==

== ENCOUNTER → 2023-04-13 | Outpatient (CLI) | payer MEDICARE, BC ==
--- NOTE | 2023-04-14 08:20 | MM ---
Reason for Exam: Screening (asymptomatic). Last mammogram was performed 1 year(s) and 8 month(s) ago. Patient History: Menarche at age 12. Patient has no children. Maternal aunt had breast cancer. Risk Values: Vaishali 5 year model risk: 1.0%. NCI Lifetime model risk: 11.4%. Prior Study Comparison: 06/10/2015 Bilateral Screening Mammogram, [facility]. 05/02/2020 Bilateral Screening Mammogram, [facility]. 08/28/2021 Bilateral MG 3D screening mammo w/cad, [facility]. Tissue Density: The breast tissue is heterogeneously dense. This may lower the sensitivity of mammography. Findings: Analyzed By CAD. There is no suspicious group of microcalcifications or new suspicious mass in either breast. Benign-appearing calcifications. Overall Assessment: Benign, BI-RAD 2 Management: Screening Mammogram of both breasts in 1 year. . Patient should continue monthly self-breast exams. A clinical breast exam by your physician is recommended on an annual basis. This exam should not preclude additional follow-up of suspicious palpable abnormalities. Note on Vaishali scores and lifetime risk: 1. A Vaishali score greater than 3% is considered moderate risk. If this is the case, consider specialist referral to assess eligibility for a risk reducing agent. 2. If overall lifetime risk for the development of breast cancer is 20% or higher, the patient may qualify for future screening with alternating mammogram and breast MRI. Electronically signed and approved by: Floyd Braun M.D. Radiologis
== END | disposition home or self-care (01) ==
LOC: RADMAMWWP 11:26
PROVIDERS: ATTEND Internal Medicine
DX: Z12.31 Encounter for screening mammogram for malignant neoplasm of breast (principal); Z80.3 Family history of malignant neoplasm of breast
CPT/HCPCS: 77063; 77067

== ENCOUNTER → 2024-01-04 | Outpatient (CLI) | payer MEDICARE, BC ==
--- NOTE | 2024-01-04 10:35 | XR ---
EXAMINATION TYPE: XR chest 2V DATE OF EXAM: 01/04/2024 COMPARISON: 10/22/2022 HISTORY: 48-year-old female R05.8, other specified cough TECHNIQUE: Frontal and lateral views FINDINGS: Heart normal size. Median sternotomy fixation hardware noted. Hyperinflation. Chronic interstitial op acities at the upper lungs. Unchanged blunting of the right costophrenic angle but without any effusi on seen on the lateral view. IMPRESSION: COPD with largely chronic appearing interstitial opacities/scarring in the upper lungs. Additional ch ronic pleural parenchymal scarring at the right lung base. Bronchiectasis is depicted on the patient' s 10/22/2022 CT is not well demonstrated radiographically. No definite new focal airspace disease. [facility], , 01/04/2024 10:32 AM
== END | disposition home or self-care (01) ==
LOC: RADXRMAIN 10:15
PROVIDERS: ATTEND Internal Medicine
DX: J47.9 Bronchiectasis, uncomplicated (principal)
CPT/HCPCS: 71046

== ENCOUNTER → 2024-02-07 | Outpatient (CLI) | payer MEDICARE, BC | LOC: CPPFTMAIN 12:51 | PROVIDERS: ATTEND Internal Medicine | DX: T86.810 Lung transplant rejection (principal); Z87.891 Personal history of nicotine dependence | CPT/HCPCS: 94060; 94726; 94729 ==

== ENCOUNTER → 2024-06-04 | Outpatient (CLI) | payer MEDICARE, BC ==
--- NOTE | 2024-06-04 14:56 | MM ---
Reason for Exam: Screening (asymptomatic). Last mammogram was performed 1 year(s) and 1 month(s) ago. Patient History: Menarche at age 12. Patient has no children. Hormonal Contraceptives for 5 years, 2 months. Maternal aunt had breast cancer. Risk Values: Vaishali 5 year model risk: 1.1%. NCI Lifetime model risk: 11.3%. Prior Study Comparison: 05/02/2020 Bilateral Screening Mammogram, [facility]. 08/28/2021 Bilateral MG 3D screening mammo w/cad, [facility]. 04/13/2023 Bilateral MG 3D screening mammo w/cad, [facility]. Tissue Density: The breasts are heterogeneously dense, which may obscure small masses. Findings: Analyzed By CAD. There is no suspicious group of microcalcifications or new suspicious mass in either breast. Partially imaged asymmetric density seen 11.6 cm left cc view outer aspect. Additional views recommended for further evaluation. Overall Assessment: Incomplete: need additional imaging evaluation, BI-RAD 0 Management: Diagnostic Mammogram of the left breast. . Patient should continue monthly self-breast exams. A clinical breast exam by your physician is recommended on an annual basis. This exam should not preclude additional follow-up of suspicious palpable abnormalities. Note on Vaishali scores and lifetime risk: 1. A Vaishali score greater than 3% is considered moderate risk. If this is the case, consider specialist referral to assess eligibility for a risk reducing agent. 2. If overall lifetime risk for the development of breast cancer is 20% or higher, the patient may qualify for future screening with alternating mammogram and breast MRI. [facility], , 06/04/2024 2:54 PM. Electronically signed and approved by: Lyndon Quintero M.D. Radiologis
== END | disposition home or self-care (01) ==
LOC: RADMAMWWP 14:12
PROVIDERS: ATTEND Internal Medicine
DX: Z12.31 Encounter for screening mammogram for malignant neoplasm of breast (principal); R92.333 Mammographic heterogeneous density, bilateral breasts; Z80.3 Family history of malignant neoplasm of breast; Z92.0 Personal history of contraception
CPT/HCPCS: 77063; 77067

== ENCOUNTER → 2024-06-06 | Outpatient (CLI) | payer MEDICARE, BC ==
--- NOTE | 2024-06-06 08:19 | MM ---
Reason for Exam: Additional evaluation requested from abnormal screening. Last screening mammogram was performed less than 1 month ago. Patient History: Menarche at age 12. Patient has no children. Hormonal Contraceptives for 5 years, 2 months. Maternal aunt had breast cancer. Risk Values: Vaishali 5 year model risk: 1.1%. NCI Lifetime model risk: 11.3%. Prior Study Comparison: 08/28/2021 Bilateral MG 3D screening mammo w/cad, [facility]. 04/13/2023 Bilateral MG 3D screening mammo w/cad, [facility]. 06/04/2024 Bilateral MG 3D screening mammo w/cad, [facility]. Tissue Density: Left: The breasts are heterogeneously dense, which may obscure small masses. Findings: Analyzed By CAD. Asymmetric density far posterior left breast does not persist. Benign calcifications persists. Overall Assessment: Benign, BI-RAD 2 Management: Screening Mammogram of both breasts in 1 year. . Results were given to the patient verbally at the time of exam. Patient should continue monthly self-breast exams. A clinical breast exam by your physician is recommended on an annual basis. This exam should not preclude additional follow-up of suspicious palpable abnormalities. Note on Vaishali scores and lifetime risk: 1. A Vaishali score greater than 3% is considered moderate risk. If this is the case, consider specialist referral to assess eligibility for a risk reducing agent. 2. If overall lifetime risk for the development of breast cancer is 20% or higher, the patient may qualify for future screening with alternating mammogram and breast MRI. [facility], , 06/06/2024 8:15 AM. Electronically signed and approved by: Lyndon Quintero M.D. Radiologis
== END | disposition home or self-care (01) ==
LOC: RADMAMWWP 07:55
PROVIDERS: ATTEND Internal Medicine
DX: R92.8 Other abnormal and inconclusive findings on diagnostic imaging of breast (principal); R92.331 Mammographic heterogeneous density, right breast; R92.1 Mammographic calcification found on diagnostic imaging of breast; Z80.3 Family history of malignant neoplasm of breast; Z92.0 Personal history of contraception
CPT/HCPCS: 77065; G0279; 77061